=== PATIENT | female | born 1950 | race Caucasian/White ===

== ENCOUNTER → 2018-02-19 09:56 | Outpatient (CLI) | payer MEDICARE, SELFPAY ==
[2018-02-19 10:38] LABS: Alanine Aminotransferase 29 IU/L (9-52); Albumin 4.1 g/dL (3.5-5.0); Albumin Globulin Ratio 1.3 (1.0-2.8); Alkaline Phosphatase 82 U/L (38-126); Aspartate Aminotransferase 44 IU/L (14-36); Bilirubin Total 0.5 mg/dL (0.2-1.3); Calcium 9.2 mg/dL (8.4-10.2); Cholesterol 126 mg/dL (140-199); Estimated Glomerular Filt Rate > 60.0 mL/min (>60); Globulin 3.1 g/dL (1.7-4.1); Glucose 89 mg/dL (80-110); HDL Cholesterol 56 mg/dL (40-60); HEMOLYSIS < 15 (0-50); LDL Cholesterol Calculated 56 mg/dL (<100); Potassium 4.7 mmol/L (3.4-5.1); Sodium 142 mmol/L (137-145); Total Protein 7.2 g/dL (6.3-8.2); Triglycerides 72 mg/dL (35-150)
== END ==
PROVIDERS: PCP Physician Assistant; Visit Provider Physician Assistant
DX: E78.5 Hyperlipidemia, unspecified (principal); R00.1 Bradycardia, unspecified
CPT/HCPCS: 36415; 80053; 80061

== ENCOUNTER → 2018-04-09 09:32 | Outpatient (CLI) | payer MEDICARE, SELFPAY ==
[2018-04-09 10:57] LABS: Cholesterol 174 mg/dL (140-199); HDL Cholesterol 63 mg/dL (40-60); LDL Cholesterol Calculated 92 mg/dL (<100); Triglycerides 97 mg/dL (35-150)
== END ==
PROVIDERS: PCP Physician Assistant; Visit Provider Physician Assistant
DX: E78.5 Hyperlipidemia, unspecified (principal)
CPT/HCPCS: 36415; 80061

== ENCOUNTER → 2018-08-19 11:24 | Outpatient (CLI) | payer MEDICARE, SELFPAY ==
--- NOTE | 2018-08-19 11:27 | DI.MG.S_ITS ---
BILATERAL DIGITAL SCREENING MAMMOGRAM 3D/2D WITH CAD: 08/19/2018 CLINICAL: Routine screening. Family history of breast cancer. Comparison is made to exams dated: 06/30/2017 mammogram, 04/16/2016 mammogram, and 02/20/2015 mammogram - [facility]. There are scattered fibroglandular elements in both breasts. Current study was also evaluated with a Computer Aided Detection (CAD) system. No significant masses, calcifications, or other findings are seen in either breast. There has been no significant interval change. IMPRESSION: NEGATIVE There is no mammographic evidence of malignancy. A 1 year screening mammogram is recommended. NOTE: For mammograms, a report in lay terms will be sent to the patient. Approximately 15% of breast malignancies will not be visualized mammographically. In the management of a palpable breast mass, a negative mammogram must not discourage biopsy of a clinically suspicious lesion. Electronically Signed By: Princess [email or web address]:08/19/2018 16:03:59 letter sent: Normal Exam ACR BI-RADS Category 1: Negative [id number]
[2018-08-19 13:45] LABS: Vitamin D 25 Hydroxy (D3) 52.2 ng/mL (30.0-100.0)
[2018-08-19 16:31] LABS: Alanine Aminotransferase 32 IU/L (9-52); Albumin 3.9 g/dL (3.5-5.0); Albumin Globulin Ratio 1.6 (1.0-2.8); Alkaline Phosphatase 73 U/L (38-126); Aspartate Aminotransferase 42 IU/L (14-36); BUN Creatinine Ratio 17.1 (6-22); Bilirubin Total 0.3 mg/dL (0.2-1.3); Blood Urea Nitrogen 12 mg/dL (7-17); Carbon Dioxide 27 mmol/L (22-32); Chloride 105 mmol/L (98-107); Cholesterol 203 mg/dL (140-199); Estimated Glomerular Filt Rate > 60.0 mL/min (>60); Globulin 2.5 g/dL (1.7-4.1); Glucose 94 mg/dL (80-110); HDL Cholesterol 69 mg/dL (40-60); HEMOLYSIS < 15 (0-50); LDL Cholesterol Calculated 114 mg/dL (<100); Potassium 4.1 mmol/L (3.4-5.1); Sodium 142 mmol/L (137-145); Total Protein 6.4 g/dL (6.3-8.2); Triglycerides 102 mg/dL (35-150)
== END ==
PROVIDERS: PCP Physician Assistant; Visit Provider Physician Assistant
DX: Z12.31 Encounter for screening mammogram for malignant neoplasm of breast (principal); Z80.3 Family history of malignant neoplasm of breast; E78.5 Hyperlipidemia, unspecified; M81.0 Age-related osteoporosis without current pathological fracture; R00.1 Bradycardia, unspecified; Z98.84 Bariatric surgery status
CPT/HCPCS: 36415; 77063; 77067; 80053; 80061; 82306

== ENCOUNTER → 2018-09-16 13:37 | Outpatient (CLI) | payer MEDICARE, SELFPAY ==
--- NOTE | 2018-09-16 13:39 | DI.RAD.S_ITS ---
PROCEDURE: FL BARIUM SWALLOW INDICATIONS: Persistant GERD COMPARISON: None. FINDINGS: Function: Patient is status post prior gastric bypass surgery. There is normal esophageal peristalsis. Mild to moderate elicited gastroesophageal reflux is seen with contrast reflux to mid esophageal lumen. There is normal transit of a calibrated barium tablet through the esophagus into the gastric remnant and into the maximal small bowel loops. Morphology: Air-contrast images demonstrate normal mucosal morphology. Single contrast views show no esophageal strictures, extrinsic mass effects, or diverticula. Limited images of the stomach demonstrate normal appearance. IMPRESSION: Prior gastric bypass surgery. Mild to moderate gastroesophageal reflux with contrast reflux to mid esophageal lumen. No gross ulceration or intraluminal filling defect. No contrast extravasation. No obstruction. Dictated by: Dudley Rojas M.D. on 09/16/2018 at 15:05 Approved by: Dudley Rojas M.D. on 09/16/2018 at 15:06
== END ==
PROVIDERS: PCP Physician Assistant; Visit Provider Physician Assistant
DX: K21.9 Gastro-esophageal reflux disease without esophagitis (principal); Z98.84 Bariatric surgery status
CPT/HCPCS: 74220

== ENCOUNTER → 2019-03-17 11:37 | Outpatient (CLI) | payer MEDICARE, SELFPAY ==
--- NOTE | 2019-03-17 11:39 | DI.RAD.S_ITS ---
PROCEDURE: XR HAND RT MIN 3V INDICATIONS: Bilateral hand and thumb pain Left greater than right TECHNIQUE: 3 views of the hand(s) acquired. COMPARISON: None. FINDINGS: Bones: No fractures or dislocations. Carpal bones are normally aligned. No suspicious bony lesions. There is moderate degenerative joint disease at the first carpometacarpal joint, and mild degenerative joint disease at the triscaphe joint, first metacarpal phalangeal joint and multiple interphalangeal joints. No bony erosions or harriet-articular osteopenia. Soft tissues: No suspicious soft tissue calcifications. IMPRESSION: Mild to moderate degenerative joint disease. Dictated by: Juan Jose Basurto M.D. on 03/17/2019 at 12:04 Approved by: Juan Jose Basurto M.D. on 03/17/2019 at 12:05
--- NOTE | 2019-03-17 11:39 | DI.RAD.S_ITS ---
PROCEDURE: XR HAND LT MIN 3V INDICATIONS: Bilateral hand and thumb pain Left greater than right TECHNIQUE: 3 views of the hand(s) acquired. COMPARISON: None. FINDINGS: Bones: No fractures or dislocations. Carpal bones are normally aligned. No suspicious bony lesions. There are osteoarthritic changes at the first carpometacarpal joint and multiple interphalangeal joints. Osteopenia. Soft tissues: No suspicious soft tissue calcifications. IMPRESSION: 1. Osteoarthritis. 2. Osteopenia. Dictated by: Juan Jose Basurto M.D. on 03/17/2019 at 14:43 Approved by: Juan Jose Basurto M.D. on 03/17/2019 at 14:45
== END ==
PROVIDERS: PCP Physician Assistant; Visit Provider Physician Assistant
DX: M79.641 Pain in right hand (principal); M79.642 Pain in left hand; M79.644 Pain in right finger(s); M79.645 Pain in left finger(s); M18.0 Bilateral primary osteoarthritis of first carpometacarpal joints; M19.042 Primary osteoarthritis, left hand; M19.041 Primary osteoarthritis, right hand
CPT/HCPCS: 73130

== ENCOUNTER → 2019-05-10 08:51 | Outpatient (CLI) | payer MEDICARE, SELFPAY ==
[2019-05-10 09:18] LABS: Add Manual Diff / Slide Review NO; Basophils Absolute Auto 0 /uL (0-100); Basophils Percent Auto 0.5 % (0-2); Eosinophils Absolute Auto 200 /uL (0-450); Eosinophils Percent Auto 4.6 % (2-4); Hematocrit 41.1 % (36-46); Hemoglobin 13.7 g/dL (12.0-16.0); Lymphocytes Absolute Auto 1600 /uL (1100-4500); Lymphocytes Percent Auto 35.7 % (25-40); Mean Corpuscular HGB Conc 33.3 % (30-36); Mean Corpuscular Hemoglobin 29.6 PG (26-34); Mean Corpuscular Volume 88.7 fL (80-100); Monocytes Absolute Auto 400 /uL (0-900); Monocytes Percent Auto 8.4 % (3-14); Neutrophils Absolute Auto 2300 /uL (1500-7000); Neutrophils Percent Auto 50.8 % (50-75); Platelet Count 286 X10^3/uL (150-400); Red Blood Cell Count 4.64 X10^6/uL (4.0-5.2); Red Cell Distribution Width 13.4 % (11.6-14.8); White Blood Cell Count 4.6 X10^3/uL (4.5-11.0)
[2019-05-10 09:34] LABS: HEMOLYSIS < 15 (0-50)
[2019-05-10 09:41] LABS: Alanine Aminotransferase 24 IU/L (9-52); Albumin Globulin Ratio 1.3 (1.0-2.8); Alkaline Phosphatase 77 U/L (38-126); Aspartate Aminotransferase 43 IU/L (14-36); Bilirubin Total 0.3 mg/dL (0.2-1.3); Bilirubin Unconjugated 0.3 mg/dL (0.0-1.1); Cholesterol 218 mg/dL (140-199); Globulin 3.2 g/dL (1.7-4.1); HDL Cholesterol 59 mg/dL (40-60); HEMOLYSIS < 15 (0-50); LDL Cholesterol Calculated 130 mg/dL (<100); Total Protein 7.2 g/dL (6.3-8.2); Triglycerides 145 mg/dL (35-150)
[2019-05-13 17:21] LABS: Percent Iron Saturation 31 % (15-50)
[2019-05-13 17:22] LABS: Total Iron Binding Capacity 344 ug/dL (265-497)
[2019-05-13 17:36] LABS: Iron 108 ug/dL (37-170)
[2019-05-13 17:37] LABS: Transferrin 292 mg/dL (206-381)
== END ==
PROVIDERS: PCP Physician Assistant; Visit Provider Physician Assistant
DX: E78.5 Hyperlipidemia, unspecified (principal); R74.8 Abnormal levels of other serum enzymes; R74.0 Nonspecific elevation of levels of transaminase and lactic acid dehydrogenase [LDH]; Z86.2 Personal history of diseases of the blood and blood-forming organs and certain disorders involving the immune mechanism
CPT/HCPCS: 36415; 80061; 80076; 83540; 83550; 85025

== ENCOUNTER → 2019-07-08 17:43 | Outpatient (CLI) | payer MEDICARE, SELFPAY ==
[2019-07-08 18:30] LABS: Influenza A and B by PCR Rapid Negative (Negative)
== END ==
PROVIDERS: PCP Physician Assistant; Visit Provider Physician Assistant
DX: R68.89 Other general symptoms and signs (principal)
CPT/HCPCS: 87400; 87502

== ENCOUNTER 2019-07-12 12:22 | Emergency (ER) | payer MEDICARE, SELFPAY ==
[2019-07-12] VITALS (8 sets, daily range): BP systolic 99–135; BP diastolic 55–93; PULSE 64–85; RESP 18–22; TEMP 37.5–37.9; O2SAT 94–100
--- NOTE | 2019-07-12 13:23 | DI.RAD.S_ITS ---
PROCEDURE: XR CHEST 2V INDICATIONS: fever/fatigue TECHNIQUE: 2 views of the chest were acquired. COMPARISON: [facility], RG, XR CXR 1 VIEW, 07/20/2005, 9:43. [facility], RG, XR CXR 1 VIEW, 07/19/2005, 9:44. FINDINGS: Surgical changes and devices: None. 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 Lungs are clear. No pleural effusions or pneumothorax. Mediastinum: Mediastinal contours are normal. Heart size is normal. Bones and chest wall: No suspicious bony abnormalities. Soft tissues appear unremarkable. IMPRESSION: No acute cardiopulmonary disease. Dictated by: Juan Jose Basurto M.D. on 07/12/2019 at 14:21 Approved by: Juan Jose Basurto M.D. on 07/12/2019 at 14:22
[2019-07-12 13:54] LABS: Influenza A and B by PCR Rapid Negative (Negative)
[2019-07-12 15:05] LABS: Amorphous Sediment Urine 1+; Bacteria Urine Many (>30); Culture Indicated Urine Specimen Cultured; Mucus Urine 1+ (Negative); RBC Urine 1-5/HPF (0-5/HPF); Squamous Epithelial Cell Urine 0-1 /HPF (0-5/HPF); WBC Urine 30-100/HPF (0-5/HPF)
[2019-07-12] MEDS: ACETAMINOPHEN 325 MG TABLET 975 MG PO (15:33)
[2019-07-12 15:57] LABS: Add Manual Diff / Slide Review NO; Basophils Absolute Auto 0 /uL (0-100); Basophils Percent Auto 0.2 % (0-2); Eosinophils Absolute Auto 0 /uL (0-450); Eosinophils Percent Auto 0.4 % (2-4); Hemoglobin 11.9 g/dL (12.0-16.0); Lymphocytes Absolute Auto 1000 /uL (1100-4500); Lymphocytes Percent Auto 8.1 % (25-40); Mean Corpuscular HGB Conc 33.9 % (30-36); Mean Corpuscular Hemoglobin 30.2 PG (26-34); Mean Corpuscular Volume 89.1 fL (80-100); Monocytes Absolute Auto 1900 /uL (0-900); Monocytes Percent Auto 15.3 % (3-14); Neutrophils Absolute Auto 9400 /uL (1500-7000); Platelet Count 316 X10^3/uL (150-400); Red Blood Cell Count 3.93 X10^6/uL (4.0-5.2); Red Cell Distribution Width 14.8 % (11.6-14.8); White Blood Cell Count 12.4 X10^3/uL (4.5-11.0)
[2019-07-12 16:23] LABS: Alanine Aminotransferase 68 IU/L (9-52); Albumin 3.5 g/dL (3.5-5.0); Albumin Globulin Ratio 0.9 (1.0-2.8); Alkaline Phosphatase 179 U/L (38-126); Aspartate Aminotransferase 87 IU/L (14-36); BUN Creatinine Ratio 28.6 (6-22); Bilirubin Total 0.8 mg/dL (0.2-1.3); Blood Urea Nitrogen 20 mg/dL (7-17); Calcium 8.2 mg/dL (8.4-10.2); Carbon Dioxide 23 mmol/L (22-32); Chloride 99 mmol/L (98-107); Estimated Glomerular Filt Rate > 60.0 mL/min (>60); Globulin 3.7 g/dL (1.7-4.1); Glucose 111 mg/dL (80-110); Sodium 133 mmol/L (137-145); Total Protein 7.2 g/dL (6.3-8.2)
[2019-07-12 16:24] LABS: HEMOLYSIS 110 (0-50); Lactate (Lactic Acid) 0.9 mmol/L (0.7-2.1)
[2019-07-12 16:25] LABS: Potassium 4.5 mmol/L (3.4-5.1)
[2019-07-12] MEDS: SODIUM CHLORIDE 0.9% 1,000 ML 1000 ML IV (16:30)
[2019-07-12 16:41] LABS: Procalcitonin 1.34 ng/mL (<0.5)
[2019-07-12] MEDS: CIPROFLOXACIN 500 MG TABLET PO (17:54)
--- NOTE | 2019-07-12 20:08 | ED_ITS ---
HPI - Fever <Mirian Garcia, CREDIT HISTORIAN-BC - Last Filed: 07/12/19 20:19> General Chief Complaint: Fever Stated Complaint: Fever,chills,body aches Time Seen by Provider: 07/12/19 15:24 Source: patient and family Mode of arrival: Ambulatory Limitations: no limitations History of Present Illness HPI Narrative: The patient is a delightful 68 year year old female former smoker with a history of acid reflux who presents with her for a chief complaint of fever muscle aches and chills. She states this has been going on for 5 days. She also endorses a headache and cough. She denies any nausea vomiting or diarrhea. She denies any ear pain. She denies any chest pain or shortness of breath. She does admit to urinary urgency, which is recently developed and states sometimes she cannot make it to the bathroom in time. She denies any dysuria. She also complains of urinary frequency. She has not taken anything to feel better. She states that she was recently evaluated at the walk-in clinic Related Data Home Medications Medication Instructions Recorded Confirmed Vitamin B-12 1 tab PO DAILY #0 07/15/17 07/13/19 multivitamin 1 tab PO DAILY #0 07/15/17 07/13/19 vit C,A-Xi-ajmfx-lutein-zeaxan 1 cap PO BID #0 07/15/17 07/13/19 [PreserVision AREDS-2] Respironics RemStar Auto CPAP #1 ea 11/06/18 07/13/19 calcium-vitamin D3-vitamin K 500 2 tab PO DAILY 03/17/19 07/13/19 mg-100 unit-40 mcg chewable tablet diphenhydramine 25 2 tab PO BEDTIME PRN tab 03/17/19 07/13/19 mg-acetaminophen 500 mg tablet escitalopram oxalate 20 mg tablet 40 mg PO DAILY tab 03/17/19 07/13/19 ferrous sulfate 325 mg (65 mg 650 mg PO DAILY tab 03/17/19 07/13/19 iron) tablet Vitamin D3 1 cap PO DAILY 07/12/19 07/13/19 ascorbic acid (vitamin C) 1,000 mg PO DAILY 07/12/19 07/13/19 Previous Rx's Medication Instructions Recorded pantoprazole 20 mg tablet,delayed 20 mg PO BID #180 tab 03/17/19 release ciprofloxacin HCl 500 mg PO BID #20 tab 07/12/19 ondansetron 4 mg PO Q6H PRN #20 tab 07/12/19 Allergies Allergy/AdvReac Type Severity Reaction Status Date / Time adhesive tape [ADHESIVE TAPE] AdvReac Intermediate BLISTER Verified 07/13/19 12:00 FROM SURGICAL TAPE Review of Systems <VIVIAN Shaw - Last Filed: 07/12/19 20:19> Review of Systems Narrative: GENERAL: See HPI HEENT: Denies sinus pain, ear pain, sore throat, difficulty swallowing, dizziness. RESPIRATORY: Denies dyspnea, cough, wheezing, hemoptysis, sputum. CARDIOVASCULAR: Denies chest pain, palpitations, orthopnea, edema, GASTROINTESTINAL: Denies nausea, vomiting, abdominal pain, diarrhea, constipation, melena. : See HPI MUSCULOSKELETAL: denies weakness, joint pain, or bony pain SKIN: Denies rash, skin lesions, or other NEUROLOGIC: Denies weakness, headache, numbness, change in speech, confusion, seizures, incoordination. PSYCHIATRIC: No concerning psychosocial issues. 12 point review of systems is negative except for those stated above PFSH <VIVIAN Shaw - Last Filed: 07/12/19 20:19> Medical History Actinic keratosis (Resolved 1989) Anxiety (Chronic 1999) Cataracts, bilateral (Resolved 2013) Depression (Chronic 1989) Fractures (Resolved 1959) GERD (gastroesophageal reflux disease) (Chronic Unknown) Hearing loss (Chronic 1989) History of gambling (Resolved 1999) History of melanoma excision (Resolved 08/2014) Hyperlipidemia (Resolved) Obstructive sleep apnea treated with continuous positive airway pressure (CPAP) (Chronic 1989) Osteoarthritis (Chronic 1999) Osteoporosis (Chronic 08/21/17) Skin cancer (Resolved 1994) Status post gastric bypass for obesity (Resolved) Tubular adenoma of colon (Resolved 09/10/17) Surgical History History of carpal tunnel repair (Resolved 1994) History of gastric bypass (Resolved) History of knee replacement (Resolved) History of skin surgery (Resolved 2009) Hx of basal cell carcinoma excision (Resolved 2010) Hx of blepharoplasty (Resolved ~1989) Hx of cataract surgery (Resolved Unknown) Status post cholecystectomy (Resolved) Status post hysterectomy (Resolved) Family History Family/Other Adopted Social History Smoking Status: Former smoker Tobacco: How many years used: 20 second hand exposure: No alcohol intake: current substance use type: does not use Family History Family/Other Adopted Social History Smoking Status: Former smoker Tobacco: How many years used: 20 second hand exposure: No alcohol intake: current substance use type: does not use Exam <VIVIAN Shaw - Last Filed: 07/12/19 20:19> Narrative Exam Narrative: GENERAL: Delightful elderly female in no acute distress HEAD: Atraumatic. Normocephalic. No temporal or scalp tenderness. EYES: Pupils equal round and reactive. Extraocular motions intact. No scleral icterus. No injection or drainage. ENT: Nose without bleeding, purulent drainage or septal hematoma. Throat without erythema, tonsillar hypertrophy or exudate. Uvula midline. Airway patent. NECK: Trachea midline. No JVD or lymphadenopathy. Supple, nontender, no me ningeal signs. CARDIOVASCULAR: Regular rate and rhythm without murmurs, gallops, or rubs. RESPIRATORY: Clear to auscultation. Breath sounds equal bilaterally. No wheezes, rales, or rhonchi. No cough. No increased respiratory effort. No accessory muscle use. GASTROINTESTINAL: Abdomen soft, non-tender, nondistended. No hepato- splenomegaly, or palpable masses. No guarding. Active bowel sounds all 4 quadrants. EXTREMITIES: No clubbing, cyanosis, or edema. No joint tenderness, effusion, or edema noted. BACK: Nontender without deformity or crepitance. No flank tenderness. NEURO: AOx3. SKIN: No rash or erythema. Initial Vital Signs Initial Vital Signs: Vital Signs Temperature 99.7 F H 07/12/19 13:18 Pulse Rate 82 07/12/19 13:18 Respiratory Rate 18 07/12/19 13:18 Blood Pressure 122/78 07/12/19 13:18 Pulse Oximetry 94 07/12/19 13:18 <Mirian Araiza DO - Last Filed: 07/14/19 18:06> Initial Vital Signs Initial Vital Signs: Vital Signs Temperature 99.7 F H 07/12/19 13:18 Pulse Rate 82 07/12/19 13:18 Respiratory Rate 18 07/12/19 13:18 Blood Pressure 122/78 07/12/19 13:18 Pulse Oximetry 94 07/12/19 13:18 Course <JORI Shaw-BC - Last Filed: 07/12/19 20:19> Orders Ordered: Discontinued Medications Acetaminophen (Tylenol) 975 mg PO NOW ONE Stop: 07/12/19 13:24 Last Admin: 07/12/19 15:33 Dose: 975 mg Documented by: MIQUEL Ciprofloxacin (Cipro) 500 mg PO NOW ONE Stop: 07/12/19 17:32 Last Admin: 07/12/19 17:54 Dose: 500 mg Documented by: MIQUEL Sodium Chloride (Normal Saline 0.9%) 1,000 mls @ 1,000 mls/hr IV BOLUS ONE Stop: 07/12/19 17:08 Last Infusion: 07/12/19 17:30 Dose: 0 mls/hr Documented by: Admin: 07/12/19 16:30 Dose: 1,000 mls/hr Documented by: MIQUEL Vital Signs Vital signs: Vital Signs - 8 hr 07/12/19 13:18 07/12/19 15:33 07/12/19 16:30 Temperature 99.7 F H 100.2 F H 99.5 F Pulse Rate 82 70 Pulse Rate [Orthostatic Lying] Pulse Rate [Orthostatic Sitting] Pulse Rate [Orthostatic Standing] Respiratory Rate 18 22 Blood Pressure 122/78 Blood Pressure [Orthostatic Lying] Blood Pressure [Orthostatic Sitting] Blood Pressure [Orthostatic Standing] Blood Pressure [Right Arm] 99/62 Pulse Oximetry 94 100 07/12/19 16:45 07/12/19 17:30 07/12/19 18:00 Temperature Pulse Rate 68 66 Pulse Rate [Orthostatic Lying] 68 Pulse Rate [Orthostatic Sitting] 64 Pulse Rate [Orthostatic Standing] 69 Respiratory Rate 20 18 Blood Pressure Blood Pressure [Orthostatic Lying] 99/65 Blood Pressure [Orthostatic Sitting] 110/66 Blood Pressure [Orthostatic Standing] 104/68 Blood Pressure [Right Arm] 135/93 H 102/55 L Pulse Oximetry 94 94 07/12/19 18:15 07/12/19 19:00 Temperature Pulse Rate 69 85 Pulse Rate [Orthostatic Lying] Pulse Rate [Orthostatic Sitting] Pulse Rate [Orthostatic Standing] Respiratory Rate 18 20 Blood Pressure Blood Pressure [Orthostatic Lying] Blood Pressure [Orthostatic Sitting] Blood Pressure [Orthostatic Standing] Blood Pressure [Right Arm] 104/68 110/77 Pulse Oximetry 96 95 <Mirian Araiza, - Last Filed: 07/14/19 18:06> Orders Ordered: Discontinued Medications Acetaminophen (Tylenol) 975 mg PO NOW ONE Stop: 07/12/19 13:24 Last Admin: 07/12/19 15:33 Dose: 975 mg Documented by: MIQUEL Ciprofloxacin (Cipro) 500 mg PO NOW ONE Stop: 07/12/19 17:32 Last Admin: 07/12/19 17:54 Dose: 500 mg Documented by: MIQUEL Sodium Chloride (Normal Saline 0.9%) 1,000 mls @ 1,000 mls/hr IV BOLUS ONE Stop: 07/12/19 17:08 Last Infusion: 07/12/19 17:30 Dose: 0 mls/hr Documented by: Admin: 07/12/19 16:30 Dose: 1,000 mls/hr Documented by: MIQUEL Vital Signs Vital signs: Vital Signs - 8 hr 07/12/19 13:18 07/12/19 15:33 07/12/19 16:30 Temperature 99.7 F H 100.2 F H 99.5 F Pulse Rate 82 70 Pulse Rate [Orthostatic Lying] Pulse Rate [Orthostatic Sitting] Pulse Rate [Orthostatic Standing] Respiratory Rate 18 22 Blood Pressure 122/78 Blood Pressure [Orthostatic Lying] Blood Pressure [Orthostatic Sitting] Blood Pressure [Orthostatic Standing] Blood Pressure [Right Arm] 99/62 Pulse Oximetry 94 100 07/12/19 16:45 07/12/19 17:30 07/12/19 18:00 Temperature Pulse Rate 68 66 Pulse Rate [Orthostatic Lying] 68 Pulse Rate [Orthostatic Sitting] 64 Pulse Rate [Orthostatic Standing] 69 Respiratory Rate 20 18 Blood Pressure Blood Pressure [Orthostatic Lying] 99/65 Blood Pressure [Orthostatic Sitting] 110/66 Blood Pressure [Orthostatic Standing] 104/68 Blood Pressure [Right Arm] 135/93 H 102/55 L Pulse Oximetry 94 94 07/12/19 18:15 07/12/19 19:00 Temperature Pulse Rate 69 85 Pulse Rate [Orthostatic Lying] Pulse Rate [Orthostatic Sitting] Pulse Rate [Orthostatic Standing] Respiratory Rate 18 20 Blood Pressure Blood Pressure [Orthostatic Lying] Blood Pressure [Orthostatic Sitting] Blood Pressure [Orthostatic Standing] Blood Pressure [Right Arm] 104/68 110/77 Pulse Oximetry 96 95 MDM - Fever <Mirian Garcia, CREDIT HISTORIAN-BC - Last Filed: 07/12/19 20:19> Lab Data Result diagrams: 07/12/19 15:45 07/12/19 15:45 Labs: Lab Results 07/12/19 07/12/19 07/12/19 Range/Units 13:22 14:35 15:45 WBC 12.4 H (4.5-11.0) X10^3/uL RBC 3.93 L (4.0-5.2) X10^6/uL Hgb 11.9 L (12.0-16.0) g/dL Hct 35.0 L (36-46) % MCV 89.1 (80-100) fL MCH 30.2 (26-34) PG MCHC 33.9 (30-36) % RDW 14.8 (11.6-14.8) % Plt Count 316 (150-400) X10^3/uL Neut % (Auto) 76.0 H (50-75) % Lymph % (Auto) 8.1 L (25-40) % [place] % (Auto) 15.3 H (3-14) % Eos % (Auto) 0.4 L (2-4) % Baso % (Auto) 0.2 (0-2) % Neut # (Auto) 9400 H (9050-9434) /uL Lymph # (Auto) 1000 L (8241-4222) /uL [place] # (Auto) 1900 H (0-900) /uL Eos # (Auto) 0 (0-450) /uL Baso # (Auto) 0 (0-100) /uL Sodium (137-145) mmol/L Potassium (3.4-5.1) mmol/L Chloride (98-107) mmol/L Carbon Dioxide (22-32) mmol/L BUN (7-17) mg/dL Creatinine (0.52-1.04) mg/dL Estimated GFR (>60) mL/min BUN/Creatinine Ratio (6-22) Glucose (80-110) mg/dL Lactate (0.7-2.1) mmol/L Calcium (8.4-10.2) mg/dL Total Bilirubin (0.2-1.3) mg/dL AST (14-36) IU/L ALT (9-52) IU/L Alkaline Phosphatase (38-126) U/L Total Protein (6.3-8.2) g/dL Albumin (3.5-5.0) g/dL Globulin (1.7-4.1) g/dL Albumin/Globulin Ratio (1.0-2.8) Procalcitonin (<0.5) ng/mL Urine RBC 1-5/hpf (0-5/HPF) Urine WBC 30-100/hpf H (0-5/HPF) Ur Squamous Epith Cells 0-1 /hpf (0-5/HPF) Amorphous Sediment 1+ Urine Bacteria Many (>30) H (None) Urine Mucus 1+ H (Negative) Ur Culture Indicated? Specimen cultured Influenza A & B (PCR) Negative (Negative) 07/12/19 07/12/19 07/12/19 Range/Units 15:45 15:45 15:45 WBC (4.5-11.0) X10^3/uL RBC (4.0-5.2) X10^6/uL Hgb (12.0-16.0) g/dL Hct (36-46) % MCV (80-100) fL MCH (26-34) PG MCHC (30-36) % RDW (11.6-14.8) % Plt Count (150-400) X10^3/uL Neut % (Auto) (50-75) % Lymph % (Auto) (25-40) % [place] % (Auto) (3-14) % Eos % (Auto) (2-4) % Baso % (Auto) (0-2) % Neut # (Auto) (7558-5079) /uL Lymph # (Auto) (7067-6773) /uL [place] # (Auto) (0-900) /uL Eos # (Auto) (0-450) /uL Baso # (Auto) (0-100) /uL Sodium 133 L (137-145) mmol/L Potassium 4.5 (3.4-5.1) mmol/L Chloride 99 (98-107) mmol/L Carbon Dioxide 23 (22-32) mmol/L BUN 20 H (7-17) mg/dL Creatinine 0.70 (0.52-1.04) mg/dL Estimated GFR > 60.0 (>60) mL/min BUN/Creatinine Ratio 28.6 H (6-22) Glucose 111 H (80-110) mg/dL Lactate 0.9 (0.7-2.1) mmol/L Calcium 8.2 L (8.4-10.2) mg/dL Total Bilirubin 0.8 (0.2-1.3) mg/dL AST 87 H (14-36) IU/L ALT 68 H (9-52) IU/L Alkaline Phosphatase 179 H (38-126) U/L Total Protein 7.2 (6.3-8.2) g/dL Albumin 3.5 (3.5-5.0) g/dL Globulin 3.7 (1.7-4.1) g/dL Albumin/Globulin Ratio 0.9 L (1.0-2.8) Procalcitonin 1.34 H (<0.5) ng/mL Urine RBC (0-5/HPF) Urine WBC (0-5/HPF) Ur Squamous Epith Cells (0-5/HPF) Amorphous Sediment Urine Bacteria (None) Urine Mucus (Negative) Ur Culture Indicated? Influenza A & B (PCR) (Negative) Imaging Data Chest x-ray: Radiologist's impression: [address] [address] XRay Report Signed Patient: Agustina Anthony LMR#: [id number] : 1950Acct:[id number] Age/Sex: 68 / FDate of Service: 07/12/19 Loc: ED Accession Number: [id number] Procedure: XR chest 2V Ordering Provider: Mirian Araiza D.O. PROCEDURE: XR CHEST 2V INDICATIONS: fever/fatigue TECHNIQUE: 2 views of the chest were acquired. COMPARISON: [facility], RG, XR CXR 1 VIEW, 07/20/2005, 9:43. [facility], RG, XR CXR 1 VIEW, 07/19/2005, 9:44. FINDINGS: Surgical changes and devices: None. 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 Lungs are clear. No pleural effusions or pneumothorax. Mediastinum: Mediastinal contours are normal. Heart size is normal. Bones and chest wall: No suspicious bony abnormalities. Soft tissues appear unremarkable. IMPRESSION: No acute cardiopulmonary disease. Dictated by: Juan Jose Basurto M.D. on 07/12/2019 at 14:21 Approved by: Juan Jose Basurto M.D. on 07/12/2019 at 14:22 MDM Narrative Medical decision making narrative: The patient is a 68-year-old female who presents with a chief complaint of fever muscle aches and chills. She was concerned she had the flu. She tested negative for the flu. Chest x-ray shows no pneumonia. However her urine is concerning for infection, with many bacteria, mucus and white blood cells. This correlates with her history of urinary urgency and frequency. I believe she has had a UTI for a few days, likely developing into a pyelonephritis at this point time. She does have low- grade fevers, but otherwise feels well without any nausea or vomiting. She kristi es any CVA tenderness on exam. However she does have a slight leukocytosis, and elevated procalcitonin at 1.34 but has a lactate of 0.9. Given her elevated temperatures with her slightly elevated procalcitonin, I did speak at length with the patient about the possibility of admission for treatment of her infection. The patient stated she strongly wanted to go home. We did at length discussed return precautions, strict follow-up, coming back to the emergency department feeling worse, inability keep down fluids etc. She was able to pass a p.o. trial in the emergency department we initiated treatment with Cipro. She felt much improved and had normal orthostatics. I reiterated several times strict return precautions as well as strict follow-up care. Patient has been state understanding of return precautions and follow-up recommendations and have no questions or concerns upon discharge. <Mirian Araiza, - Last Filed: 10/09/19 18:06> Lab Data Labs: Lab Results 07/12/19 07/12/19 07/12/19 Range/Units 13:22 14:35 15:45 WBC 12.4 H (4.5-11.0) X10^3/uL RBC 3.93 L (4.0-5.2) X10^6/uL Hgb 11.9 L (12.0-16.0) g/dL Hct 35.0 L (36-46) % MCV 89.1 (80-100) fL MCH 30.2 (26-34) PG MCHC 33.9 (30-36) % RDW 14.8 (11.6-14.8) % Plt Count 316 (150-400) X10^3/uL Neut % (Auto) 76.0 H (50-75) % Lymph % (Auto) 8.1 L (25-40) % [place] % (Auto) 15.3 H (3-14) % Eos % (Auto) 0.4 L (2-4) % Baso % (Auto) 0.2 (0-2) % Neut # (Auto) 9400 H (3401-1143) /uL Lymph # (Auto) 1000 L (6727-7834) /uL [place] # (Auto) 1900 H (0-900) /uL Eos # (Auto) 0 (0-450) /uL Baso # (Auto) 0 (0-100) /uL Sodium (137-145) mmol/L Potassium (3.4-5.1) mmol/L Chloride (98-107) mmol/L Carbon Dioxide (22-32) mmol/L BUN (7-17) mg/dL Creatinine (0.52-1.04) mg/dL Estimated GFR (>60) mL/min BUN/Creatinine Ratio (6-22) Glucose (80-110) mg/dL Lactate (0.7-2.1) mmol/L Calcium (8.4-10.2) mg/dL Total Bilirubin (0.2-1.3) mg/dL AST (14-36) IU/L ALT (9-52) IU/L Alkaline Phosphatase (38-126) U/L Total Protein (6.3-8.2) g/dL Albumin (3.5-5.0) g/dL Globulin (1.7-4.1) g/dL Albumin/Globulin Ratio (1.0-2.8) Procalcitonin (<0.5) ng/mL Urine RBC 1-5/hpf (0-5/HPF) Urine WBC 30-100/hpf H (0-5/HPF) Ur Squamous Epith Cells 0-1 /hpf (0-5/HPF) Amorphous Sediment 1+ Urine Bacteria Many (>30) H (None) Urine Mucus 1+ H (Negative) Ur Culture Indicated? Specimen cultured Influenza A & B (PCR) Negative (Negative) 07/12/19 07/12/19 07/12/19 Range/Units 15:45 15:45 15:45 WBC (4.5-11.0) X10^3/uL RBC (4.0-5.2) X10^6/uL Hgb (12.0-16.0) g/dL Hct (36-46) % MCV (80-100) fL MCH (26-34) PG MCHC (30-36) % RDW (11.6-14.8) % Plt Count (150-400) X10^3/uL Neut % (Auto) (50-75) % Lymph % (Auto) (25-40) % [place] % (Auto) (3-14) % Eos % (Auto) (2-4) % Baso % (Auto) (0-2) % Neut # (Auto) (0369-5658) /uL Lymph # (Auto) (9120-8122) /uL [place] # (Auto) (0-900) /uL Eos # (Auto) (0-450) /uL Baso # (Auto) (0-100) /uL Sodium 133 L (137-145) mmol/L Potassium 4.5 (3.4-5.1) mmol/L Chloride 99 (98-107) mmol/L Carbon Dioxide 23 (22-32) mmol/L BUN 20 H (7-17) mg/dL Creatinine 0.70 (0.52-1.04) mg/dL Estimated GFR > 60.0 (>60) mL/min BUN/Creatinine Ratio 28.6 H (6-22) Glucose 111 H (80-110) mg/dL Lactate 0.9 (0.7-2.1) mmol/L Calcium 8.2 L (8.4-10.2) mg/dL Total Bilirubin 0.8 (0.2-1.3) mg/dL AST 87 H (14-36) IU/L ALT 68 H (9-52) IU/L Alkaline Phosphatase 179 H (38-126) U/L Total Protein 7.2 (6.3-8.2) g/dL Albumin 3.5 (3.5-5.0) g/dL Globulin 3.7 (1.7-4.1) g/dL Albumin/Globulin Ratio 0.9 L (1.0-2.8) Procalcitonin 1.34 H (<0.5) ng/mL Urine RBC (0-5/HPF) Urine WBC (0-5/HPF) Ur Squamous Epith Cells (0-5/HPF) Amorphous Sediment Urine Bacteria (None) Urine Mucus (Negative) Ur Culture Indicated? Influenza A & B (PCR) (Negative) Discharge Plan Departure Patient Disposition: Home Clinical Impression: Acute pyelonephritis Discharge Date/Time: 07/12/19 19:30 Instructions: DI for Kidney Infection, DI for Fever (Symptom) -- Adult Activity Restrictions/Additional Instructions: Thank you for trusting us with your care today. We have found a urinary tract infection that needs antibiotics. I have given you a prescription of antibiotics. Please take the full course. I suggest continue [id number] medications as needed for muscles and aches. As I discussed, you need very close follow-up with her primary care provider. Please call them tomorrow. Please do not hesitate to come back to the emergency department for any acute concerns including high fever, inability keep down fluids, feeling worse etc. Please come back if you are concerned. Please rest and push fluids. At this point we have blood and urine cultures pending. We will call you if we need to change your antibiotics. Prescriptions: New ondansetron 4 mg tablet,disintegrating 4 mg PO Q6H PRN (Reason: nausea and vomiting) Qty: 20 RF: 0 ciprofloxacin HCl 500 mg tablet 500 mg PO BID Qty: 20 RF: 0 No Action multivitamin Tablet 1 tab PO DAILY Qty: 0 RF: 0 Vitamin B-12 1 tab PO DAILY Qty: 0 RF: 0 PreserVision AREDS-2 [id number] tr-dkxz-sa-mg Capsule 1 cap PO BID Qty: 0 RF: 0 escitalopram oxalate 20 mg tablet 40 mg PO DAILY RF: 0 calcium-vitamin D3-vitamin K 500-100-40 mg-unit-mcg tablet,chewable 2 tab PO DAILY RF: 0 ferrous sulfate 325 mg (65 mg iron) tablet 650 mg PO DAILY RF: 0 diphenhydramine-acetaminophen [Acetaminophen PM] 25-500 mg tablet 2 tab PO BEDTIME PRN (Reason: Sleep) RF: 0 pantoprazole 20 mg tablet,delayed release (DR/EC) 20 mg PO BID Qty: 180 RF: 3 ascorbic acid (vitamin C) 500 mg Tablet,Chewable 1,000 mg PO DAILY RF: 0 Vitamin D3 1 cap PO DAILY RF: 0 (DME) Respironics RemStar Auto CPAP aerosol Qty: 1 RF: 0 Referrals: Gema Heredia PA-C [Primary Care Provider] -
== END 2019-07-12 19:30 | disposition home or self-care (01) ==
PROVIDERS: Emergency Medicine; Emergency Provider Nurse Practitioner Family; PCP Physician Assistant
DX: N10 Acute pyelonephritis (principal)
CPT/HCPCS: 36415; 71046; 80053; 81015; 83605; 84145; 85025; 87040; 87077; 87086; 87186; 87400; 87502; 96360; 99283; 99284

== ENCOUNTER → 2019-07-23 14:20 | Outpatient (CLI) | payer MEDICARE, SELFPAY ==
[2019-07-23 14:37] LABS: Appearance Urine UA CLEAR; Bilirubin Urine UA NEGATIVE (NEGATIVE); Color Urine UA YELLOW; Glucose Urine UA NEGATIVE (Negative); Ketones Urine UA NEGATIVE (NEGATIVE); Leukocyte Esterase Urine UA TRACE (NEGATIVE); Nitrite Urine UA NEGATIVE (Negative); Occult Blood Urine UA NEGATIVE (Negative); Protein Urine UA NEGATIVE (Negative); Urobilinogen Urine UA 0.2 E.U./dL (0.2)
[2019-07-23 14:40] LABS: Bacteria Urine None Seen; RBC Urine None Seen (0-5/HPF)
[2019-07-23 14:48] LABS: Amorphous Sediment Urine 3+; Culture Indicated Urine Specimen Cultured; Squamous Epithelial Cell Urine 1-5 /HPF (0-5/HPF); WBC Urine 1-5/HPF (0-5/HPF)
== END ==
PROVIDERS: PCP Physician Assistant; Visit Provider Nurse Practitioner
DX: N10 Acute pyelonephritis (principal)
CPT/HCPCS: 81003; 81015; 87086

== ENCOUNTER → 2019-08-20 11:48 | Outpatient (CLI) | payer MEDICARE, SELFPAY ==
--- NOTE | 2019-08-20 | DI.MG.S_ITS ---
BILATERAL DIGITAL SCREENING MAMMOGRAM 3D/2D WITH CAD: 08/20/2019 CLINICAL: Routine screening. Family history of breast cancer. Comparison is made to exams dated: 08/19/2018 mammogram - [facility], 06/30/2017 mammogram, and 04/16/2016 mammogram - [facility]. There are scattered fibroglandular elements in both breasts. Current study was also evaluated with a Computer Aided Detection (CAD) system. No significant masses, calcifications, or other findings are seen in either breast. There has been no significant interval change. IMPRESSION: NEGATIVE There is no mammographic evidence of malignancy. A 1 year screening mammogram is recommended. This exam was interpreted at Station ID: [id number]. NOTE: For mammograms, a report in lay terms will be sent to the patient. Approximately 15% of breast malignancies will not be visualized mammographically. In the management of a palpable breast mass, a negative mammogram must not discourage biopsy of a clinically suspicious lesion. Electronically Signed By: Gray beckman/leni:08/20/2019 13:28:51 letter sent: Normal Exam ACR BI-RADS Category 1: Negative [id number]
== END ==
PROVIDERS: PCP Physician Assistant; Visit Provider Physician Assistant
DX: Z12.31 Encounter for screening mammogram for malignant neoplasm of breast (principal); Z80.3 Family history of malignant neoplasm of breast
CPT/HCPCS: 77063; 77067

== ENCOUNTER 2019-08-30 10:30 | Outpatient (RCR) | payer MEDICARE, SELFPAY ==
--- NOTE | 2019-08-13 13:56 | PT.OIE ---
Current Diagnoses Mixed incontinence (08/13/19) Unspecified urinary incontinence (08/13/19) Past Medical History (Last Reviewed 07/12/19 @ 20:12 by JORI Shaw-) Actinic keratosis (Resolved 1989) Anxiety (Chronic 1999) Cataracts, bilateral (Resolved 2013) Depression (Chronic 1989) Fractures (Resolved 1959) GERD (gastroesophageal reflux disease) (Chronic Unknown) Hearing loss (Chronic 1989) History of gambling (Resolved 1999) History of melanoma excision (Resolved 08/2014) Hyperlipidemia (Resolved) Obstructive sleep apnea treated with continuous positive airway pressure (CPAP) (Chronic 1989) Osteoarthritis (Chronic 1999) Osteoporosis (Chronic 08/21/17) Skin cancer (Resolved 1994) Status post gastric bypass for obesity (Resolved) Tubular adenoma of colon (Resolved 09/10/17) Past Surgical History (Last Reviewed 07/12/19 @ 20:12 by JORI Shaw-) History of carpal tunnel repair (Resolved 1994) History of gastric bypass (Resolved) History of knee replacement (Resolved) History of skin surgery (Resolved 2009) Hx of basal cell carcinoma excision (Resolved 2010) Hx of blepharoplasty (Resolved ) Hx of cataract surgery (Resolved Unknown) Status post cholecystectomy (Resolved) Status post hysterectomy (Resolved) Visit Care Team Role Provider Type Gema Heredia PA-C Primary Care Provider Advanced Sustainability Communicator Specialty: Medical Address: [address] [place] [address], [address], [facility] Email: [email or web address] DENNY Riley Attending Provider Advanced Sustainability Communicator Specialty: Family Practice Address: [address] [place] [address], [facility] Email: [email or web address] Physical Therapy Initial Evaluation PT-OP-A Visit Information Start: 08/13/19 07:29 Freq: Status: Active Protocol: Document 08/13/19 09:00 AMB (Rec: 08/15/19 13:56 AMB [email or web address]) Out-Patient Physical Therapy Visit Information Visit Information Visit Type Initial Evaluation Visit Start Time 09:00 Visit Stop Time 09:45 Total Visit Minutes 45 Visit Number 1 PT-OP-B Current Condition Start: 08/13/19 07:29 Freq: Status: Active Protocol: Document 08/13/19 09:00 AMB (Rec: 08/15/19 13:56 AMB [email or web address]) Current Condition History of Current Condition Onset Date 5 years ago, worse in last month Current Complaints urinary incontinence urgency and stress History of Current Condition Agustina Fernández has noticed urinary leaking for the past few years. She was recently diagnosed with a kidney infection, and while that was going on her leaking was much worse. Now that the infection has resolved, her symptoms are still worse than they were before. She wears pads both at day and night, she leaks when she has an urge (like walking to the toilet) and with sneeze, cough, laugh. She does have a history of 2 vaginal deliveries with 2 episiotomies. She did have a gastric bypass in 2004 and hysterectomy in 1984 with hormone replacement, she does state that she retained one ovary. She does have a history of painful intercourse - pretty much her whole life although she is not sexually active currently. Treatment Goals Patient/Caregiver Goals Reduce leaking (both stress and urgency) Prior Functional Status Baseline Function- ADL's Independent Baseline Function- Mobility Independent Current Functional Impairments (Reported) Functional Limitations- ADL's urinary leaking Personal Factors Other Personal Factors That May Effect Recent kidney infection, hx Therapy/Recovery hysterectomy, hx painful intercourse PT-OP-C Subjective Start: 08/13/19 07:29 Freq: Status: Active Protocol: Document 08/13/19 09:00 AMB (Rec: 08/15/19 13:56 AMB [email or web address]) Patient Questionnaires Pelvic Pain and Urgency/Frequency Patient Symptom Scale Pelvic Pain Score 11 PT-OP-I Pelvic Floor Start: 08/13/19 07:29 Freq: Status: Active Protocol: Document 08/13/19 09:00 AMB (Rec: 08/15/19 13:56 AMB [email or web address]) Pelvic Floor Assessment Urine Pelvic Floor Surgery Yes: hysterectomy Leakage Size Medium Leakage Cause Cough,Exercise,Lifting,Sneeze, Urge Other Leakage Causes pt reports she does not drink much fluid and does not have much urine when she does void Leaks Per Day 3 Voiding Frequency every 2 hours Nocturia 0-1 Urine Pad Type Panty Liner Pelvic Clock Pelvic Clock 12-3 Atrophy Pelvic Clock 3-6 Atrophy Pelvic Clock 6-9 Atrophy Pelvic Clock 9-12 Atrophy Pelvic Clock Other despite painful intercourse hx pt did not have significant tightness or pain with internal assessment Prolapse Cystocele Grade 2 Perineal Descent Resting Present Bearing Present Contraction Ability Voluntary Contraction Weak Voluntary Relaxation Moderate Manual Muscle Testing Left 2 Manual Muscle Testing Right 2 Manual Muscle Testing Anterior 2 Manual Muscle Testing Posterior 2 Muscle Endurance (Seconds) 5 Number of Quick Contractions In 10 4 Seconds PT-OP-T Assessment and Plan Start: 08/13/19 07:29 Freq: Status: Active Protocol: Document 08/13/19 09:00 AMB (Rec: 08/15/19 13:56 AMB [email or web address]) Physical Therapy Assessment Rehab Potential Rehabilitation Potential Good Evaluation Complexity Number of Personal Factors/Comorbidities 3 or More Number of Body Systems Impaired 1-2 Clinical Presentation at Evaluation Stable Impairments Impairments Functional Activities,Strength Goals Two Impairment urge incontinence Short Term Goal (STG) Pradeep will use pelvic floor contractions and focused relaxation to calmly walk to the toilet to avoid leaking due to urgency. STG Duration 4 weeks One Impairment stress incontinence Short Term Goal (STG) Pradeep will be independent with a pelvic floor strengthening program. STG Duration 4 weeks Shelter Goal (LTG) Pradeep will be able to contract her pelvic floor when coughing to avoid leaking. LTG Duration 8 weeks Assessment Summary Assessment Pradeep attends PT with both urge and stress urinary incontinence, worsened by recent kidney infection. She did have signs of cystocele and weakness in her pelvic floor. So we will work to improve her strength, especially in functional positions. She will also benefit from behavioral training to reduce her triggers and urgency. Physical Therapy Plan Frequency and Duration Frequency of Treatment 1x/Week Duration of Treatment 8 weeks Plan of Care Start Date 08/13/19 Plan of Care End Date 10/08/19 Therapeutic Interventions Therapeutic Interventions Home Exercise Program,Manual Therapy,Neuromuscular Re- education,Self-Care/Home Management,Soft Tissue Mobilization,Therapeutic Activities,Therapeutic Exercises Modalities Biofeedback,Electric Stimulation Next Visit Focus/Plan Next Note Type Treatment Note Next Visit Plan being with sEMG if tolerates sensor, instruct in behavioral training to reduce urgency
--- NOTE | 2019-08-13 13:57 | PT.OPPOC ---
Current Diagnoses Mixed incontinence (08/13/19) Unspecified urinary incontinence (08/13/19) Visit Care Team Role Provider Type Gema Heredia PA-C Primary Care Provider Advanced Inspector Packager Specialty: Medical Address: [address] [place] [address], [address], [place], [address] Email: [email or web address] DENNY Riley Attending Provider Advanced Inspector Packager Specialty: Family Practice Address: [address] [place] [address], [id number] Email: [email or web address] Plan Of Care PT-OP-T Assessment and Plan Start: 08/13/19 07:29 Freq: Status: Active Protocol: Document 08/13/19 09:00 AMB (Rec: 08/15/19 13:56 AMB [email or web address]) Physical Therapy Assessment Rehab Potential Rehabilitation Potential Good Evaluation Complexity Number of Personal Factors/Comorbidities 3 or More Number of Body Systems Impaired 1-2 Clinical Presentation at Evaluation Stable Impairments Impairments Functional Activities,Strength Goals Two Impairment urge incontinence Short Term Goal (STG) Pradeep will use pelvic floor contractions and focused relaxation to calmly walk to the toilet to avoid leaking due to urgency. STG Duration 4 weeks One Impairment stress incontinence Short Term Goal (STG) Pradeep will be independent with a pelvic floor strengthening program. STG Duration 4 weeks Intermediate Goal (LTG) Pradeep will be able to contract her pelvic floor when coughing to avoid leaking. LTG Duration 8 weeks Assessment Summary Assessment Pradeep attends PT with both urge and stress urinary incontinence, worsened by recent kidney infection. She did have signs of cystocele and weakness in her pelvic floor. So we will work to improve her strength, especially in functional positions. She will also benefit from behavioral training to reduce her triggers and urgency. Physical Therapy Plan Frequency and Duration Frequency of Treatment 1x/Week Duration of Treatment 8 weeks Plan of Care Start Date 08/13/19 Plan of Care End Date 10/08/19 Therapeutic Interventions Therapeutic Interventions Home Exercise Program,Manual Therapy,Neuromuscular Re- education,Self-Care/Home Management,Soft Tissue Mobilization,Therapeutic Activities,Therapeutic Exercises Modalities Biofeedback,Electric Stimulation Next Visit Focus/Plan Next Note Type Treatment Note [facility], instruct in behavioral training to reduce urgency Plan of Care Dates Plan of Care Start Date 08/13/19 Plan of Care End Date 10/08/19
--- NOTE | 2019-08-20 09:47 | PT.OTN ---
Current Diagnoses Mixed incontinence (08/20/19) Unspecified urinary incontinence (08/20/19) Physical Therapy Treatment Note PT-OP-A Visit Information Start: 08/13/19 07:29 Freq: Status: Active Protocol: Document 08/20/19 09:00 AMB (Rec: 08/20/19 09:45 AMB [id number]) Out-Patient Physical Therapy Visit Information Visit Information Visit Type Treatment Note Visit Start Time 09:00 Visit Stop Time 09:45 Total Visit Minutes 45 Visit Number 2 PT-OP-B Current Condition Start: 08/13/19 07:29 Freq: Status: Active Protocol: Document 08/13/19 09:00 AMB (Rec: 08/15/19 13:56 AMB [email or web address]) Current Condition History of Current Condition Onset Date 5 years ago, worse in last month Current Complaints urinary incontinence urgency and stress History of Current Condition Agustina Fernández has noticed urinary leaking for the past few years. She was recently diagnosed with a kidney infection, and while that was going on her leaking was much worse. Now that the infection has resolved, her symptoms are still worse than they were before. She wears pads both at day and night, she leaks when she has an urge (like walking to the toilet) and with sneeze, cough, laugh. She does have a history of 2 vaginal deliveries with 2 episiotomies. She did have a gastric bypass in 2004 and hysterectomy in 1984 with hormone replacement, she does state that she retained one ovary. She does have a history of painful intercourse - pretty much her whole life although she is not sexually active currently. Treatment Goals Patient/Caregiver Goals Reduce leaking (both stress and urgency) Prior Functional Status Baseline Function- ADL's Independent Baseline Function- Mobility Independent Current Functional Impairments (Reported) Functional Limitations- ADL's urinary leaking Personal Factors Other Personal Factors That May Effect Recent kidney infection, hx Therapy/Recovery hysterectomy, hx painful intercourse PT-OP-C Subjective Start: 08/13/19 07:29 Freq: Status: Active Protocol: Document 08/20/19 09:00 AMB (Rec: 08/20/19 09:45 AMB [email or web address]) OP-PT Subjective Patient Comments Patient Comments Pt most bothered by urgency and frequency. PT-OP-I Pelvic Floor Start: 08/13/19 07:29 Freq: Status: Active Protocol: Document 08/13/19 09:00 AMB (Rec: 08/15/19 13:56 AMB [email or web address]) Pelvic Floor Assessment Urine Pelvic Floor Surgery Yes: hysterectomy Leakage Size Medium Leakage Cause Cough,Exercise,Lifting,Sneeze, Urge Other Leakage Causes pt reports she does not drink much fluid and does not have much urine when she does void Leaks Per Day 3 Voiding Frequency every 2 hours Nocturia 0-1 Urine Pad Type Panty Liner Pelvic Clock Pelvic Clock 12-3 Atrophy Pelvic Clock 3-6 Atrophy Pelvic Clock 6-9 Atrophy Pelvic Clock 9-12 Atrophy Pelvic Clock Other despite painful intercourse hx pt did not have significant tightness or pain with internal assessment Prolapse Cystocele Grade 2 Perineal Descent Resting Present Bearing Present Contraction Ability Voluntary Contraction Weak Voluntary Relaxation Moderate Manual Muscle Testing Left 2 Manual Muscle Testing Right 2 Manual Muscle Testing Anterior 2 Manual Muscle Testing Posterior 2 Muscle Endurance (Seconds) 5 Number of Quick Contractions In 10 4 Seconds PT-OP-Q Treatments Start: 08/13/19 07:29 Freq: Status: Active Protocol: Document 08/20/19 09:00 AMB (Rec: 08/20/19 09:45 AMB [id number]) Neuro Re-Education Treatment Other Activities 2 Details urge reduction techniques Comments at home trying to space time between voids to 1 hour 10 minutes 1 Details quick flicks and long hold with NMES Comments added in roll in PT-OP-T Assessment and Plan Start: 08/13/19 07:29 Freq: Status: Active Protocol: Document 08/20/19 09:00 AMB (Rec: 08/20/19 09:45 AMB [id number]) Physical Therapy Assessment Assessment Summary Assessment 6.2 avg resting baseline tone. Max 28.7, avg of 16.5. Pt is trying not to use abs but it is hard. Physical Therapy Plan Next Visit Focus/Plan Next Note Type Treatment Note Next Visit Plan being with sEMG if tolerates sensor, instruct in behavioral training to reduce urgency
--- NOTE | 2019-08-27 12:58 | PT.OTN ---
Current Diagnoses Mixed incontinence (08/27/19) Unspecified urinary incontinence (08/27/19) Physical Therapy Treatment Note PT-OP-A Visit Information Start: 08/13/19 07:29 Freq: Status: Active Protocol: Document 08/27/19 11:15 AMB (Rec: 08/27/19 12:58 AMB [email or web address]) Out-Patient Physical Therapy Visit Information Visit Information Visit Type Treatment Note Visit Start Time 11:15 Visit Stop Time 12:00 Total Visit Minutes 45 Visit Number 3 PT-OP-B Current Condition Start: 08/13/19 07:29 Freq: Status: Active Protocol: Document 08/13/19 09:00 AMB (Rec: 08/15/19 13:56 AMB [email or web address]) Current Condition History of Current Condition Onset Date 5 years ago, worse in last month Current Complaints urinary incontinence urgency and stress History of Current Condition Agustina Fernández has noticed urinary leaking for the past few years. She was recently diagnosed with a kidney infection, and while that was going on her leaking was much worse. Now that the infection has resolved, her symptoms are still worse than they were before. She wears pads both at day and night, she leaks when she has an urge (like walking to the toilet) and with sneeze, cough, laugh. She does have a history of 2 vaginal deliveries with 2 episiotomies. She did have a gastric bypass in 2004 and hysterectomy in 1984 with hormone replacement, she does state that she retained one ovary. She does have a history of painful intercourse - pretty much her whole life although she is not sexually active currently. Treatment Goals Patient/Caregiver Goals Reduce leaking (both stress and urgency) Prior Functional Status Baseline Function- ADL's Independent Baseline Function- Mobility Independent Current Functional Impairments (Reported) Functional Limitations- ADL's urinary leaking Personal Factors Other Personal Factors That May Effect Recent kidney infection, hx Therapy/Recovery hysterectomy, hx painful intercourse PT-OP-C Subjective Start: 08/13/19 07:29 Freq: Status: Active Protocol: Document 08/27/19 11:15 AMB (Rec: 08/27/19 12:58 AMB [email or web address]) OP-PT Subjective Patient Comments Patient Comments Pt having difficulty extending the time between voids, has been doing her exercises. PT-OP-I Pelvic Floor Start: 08/13/19 07:29 Freq: Status: Active Protocol: Document 08/13/19 09:00 AMB (Rec: 08/15/19 13:56 AMB [email or web address]) Pelvic Floor Assessment Urine Pelvic Floor Surgery Yes: hysterectomy Leakage Size Medium Leakage Cause Cough,Exercise,Lifting,Sneeze, Urge Other Leakage Causes pt reports she does not drink much fluid and does not have much urine when she does void Leaks Per Day 3 Voiding Frequency every 2 hours Nocturia 0-1 Urine Pad Type Panty Liner Pelvic Clock Pelvic Clock 12-3 Atrophy Pelvic Clock 3-6 Atrophy Pelvic Clock 6-9 Atrophy Pelvic Clock 9-12 Atrophy Pelvic Clock Other despite painful intercourse hx pt did not have significant tightness or pain with internal assessment Prolapse Cystocele Grade 2 Perineal Descent Resting Present Bearing Present Contraction Ability Voluntary Contraction Weak Voluntary Relaxation Moderate Manual Muscle Testing Left 2 Manual Muscle Testing Right 2 Manual Muscle Testing Anterior 2 Manual Muscle Testing Posterior 2 Muscle Endurance (Seconds) 5 Number of Quick Contractions In 10 4 Seconds PT-OP-Q Treatments Start: 08/13/19 07:29 Freq: Status: Active Protocol: Document 08/27/19 11:15 AMB (Rec: 08/27/19 12:58 AMB [email or web address]) Therapeutic Exercises Sitting Exercises 1 Sitting Exercise Name roll in roll out Resistance #2 band Comments 2x10 Neuro Re-Education Treatment Other Activities 1 Details quick flicks and long hold with sEMG PT-OP-T Assessment and Plan Start: 08/13/19 07:29 Freq: Status: Active Protocol: Document 08/27/19 11:15 AMB (Rec: 08/27/19 12:58 AMB [email or web address]) Physical Therapy Assessment Assessment Summary Assessment Pt with better endurance today , but continues to have a hard time not compensating Physical Therapy Plan Next Visit Focus/Plan Next Note Type Treatment Note Next Visit Plan being with sEMG if tolerates sensor, instruct in behavioral training to reduce urgency
--- NOTE | 2019-08-31 12:52 | PT.OTN ---
Current Diagnoses Mixed incontinence (08/30/19) Unspecified urinary incontinence (08/30/19) Physical Therapy Treatment Note PT-OP-A Visit Information Start: 08/13/19 07:29 Freq: Status: Active Protocol: Document 08/30/19 10:30 AMB (Rec: 08/30/19 16:10 AMB [id number]) Out-Patient Physical Therapy Visit Information Visit Information Visit Type Treatment Note Visit Start Time 10:30 Visit Stop Time 11:15 Total Visit Minutes 45 Visit Number 4 PT-OP-B Current Condition Start: 08/13/19 07:29 Freq: Status: Active Protocol: Document 08/13/19 09:00 AMB (Rec: 08/15/19 13:56 AMB [email or web address]) Current Condition History of Current Condition Onset Date 5 years ago, worse in last month Current Complaints urinary incontinence urgency and stress History of Current Condition Agustina Fernández has noticed urinary leaking for the past few years. She was recently diagnosed with a kidney infection, and while that was going on her leaking was much worse. Now that the infection has resolved, her symptoms are still worse than they were before. She wears pads both at day and night, she leaks when she has an urge (like walking to the toilet) and with sneeze, cough, laugh. She does have a history of 2 vaginal deliveries with 2 episiotomies. She did have a gastric bypass in 2004 and hysterectomy in 1984 with hormone replacement, she does state that she retained one ovary. She does have a history of painful intercourse - pretty much her whole life although she is not sexually active currently. Treatment Goals Patient/Caregiver Goals Reduce leaking (both stress and urgency) Prior Functional Status Baseline Function- ADL's Independent Baseline Function- Mobility Independent Current Functional Impairments (Reported) Functional Limitations- ADL's urinary leaking Personal Factors Other Personal Factors That May Effect Recent kidney infection, hx Therapy/Recovery hysterectomy, hx painful intercourse PT-OP-C Subjective Start: 08/13/19 07:29 Freq: Status: Active Protocol: Document 08/30/19 10:30 AMB (Rec: 08/31/19 11:17 AMB [email or web address]) OP-PT Subjective Patient Comments Patient Comments Pt almost made it ot the bathroom, she felt the urge to go, did her kegels, the urge diminished, she walked to the bathroom, but once she got into the bathroom she leaked , but it wasn't a lot. PT-OP-I Pelvic Floor Start: 08/13/19 07:29 Freq: Status: Active Protocol: Document 08/13/19 09:00 AMB (Rec: 08/15/19 13:56 AMB [email or web address]) Pelvic Floor Assessment Urine Pelvic Floor Surgery Yes: hysterectomy Leakage Size Medium Leakage Cause Cough,Exercise,Lifting,Sneeze, Urge Other Leakage Causes pt reports she does not drink much fluid and does not have much urine when she does void Leaks Per Day 3 Voiding Frequency every 2 hours Nocturia 0-1 Urine Pad Type Panty Liner Pelvic Clock Pelvic Clock 12-3 Atrophy Pelvic Clock 3-6 Atrophy Pelvic Clock 6-9 Atrophy Pelvic Clock 9-12 Atrophy Pelvic Clock Other despite painful intercourse hx pt did not have significant tightness or pain with internal assessment Prolapse Cystocele Grade 2 Perineal Descent Resting Present Bearing Present Contraction Ability Voluntary Contraction Weak Voluntary Relaxation Moderate Manual Muscle Testing Left 2 Manual Muscle Testing Right 2 Manual Muscle Testing Anterior 2 Manual Muscle Testing Posterior 2 Muscle Endurance (Seconds) 5 Number of Quick Contractions In 10 4 Seconds PT-OP-Q Treatments Start: 08/13/19 07:29 Freq: Status: Active Protocol: Document 08/30/19 10:30 AMB (Rec: 08/31/19 12:52 AMB [email or web address]) Therapeutic Exercises Sitting Exercises 1 Sitting Exercise Name roll in roll out Resistance #2 band Comments 2x10 Standing Exercises 2 Standing Exercise Name sit to stand Reps/Minutes x5 Comments pelvic floor contraction during 1 Standing Exercise Name quick flicks in standing Comments doable, long holds harder Neuro Re-Education Treatment Other Activities 1 Details quick flicks and long hold with sEMG PT-OP-T Assessment and Plan Start: 08/13/19 07:29 Freq: Status: Active Protocol: Document 08/30/19 10:30 AMB (Rec: 08/31/19 11:17 AMB [email or web address]) Physical Therapy Assessment Assessment Summary Assessment Pt with a better time not compensating with abdominals today. Physical Therapy Plan Next Visit Focus/Plan Next Note Type Treatment Note Next Visit Plan continue with strengthening, working into standing, instruct in behavioral training to reduce urgency
--- NOTE | 2019-09-06 10:29 | PT-OP ANOTE ---
Called patient at 10:05 for her 9:45 appointment and she was very apologetic and said that she thought her appointment was at 10:30. She and her are going on a trip and will be out of the country for the next month. She asks that we put her on hold for that month and she will contact us when she gets back.
--- NOTE | 2019-12-09 08:02 | PT.OPDS ---
Current Diagnoses Mixed incontinence (08/30/19) Unspecified urinary incontinence (08/30/19) Visit Care Team Role Provider Type Gema Heredia PA-C Primary Care Provider Advanced Lamination Operator Specialty: Medical Address: [address] [place] [address], [facility] [address], [place], [address] Email: [email or web address] DENNY Riley Attending Provider Advanced Lamination Operator Specialty: Family Practice Address: [address] [place] [address], [id number] Email: [email or web address] Visit Number Visit Number 4 Discharge Summary PT-OP-B Current Condition Start: 08/13/19 07:29 Freq: Status: Active Protocol: Document 08/13/19 09:00 AMB (Rec: 08/15/19 13:56 AMB [email or web address]) Current Condition History of Current Condition Onset Date 5 years ago, worse in last month Current Complaints urinary incontinence urgency and stress History of Current Condition Agustina Fernández has noticed urinary leaking for the past few years. She was recently diagnosed with a kidney infection, and while that was going on her leaking was much worse. Now that the infection has resolved, her symptoms are still worse than they were before. She wears pads both at day and night, she leaks when she has an urge (like walking to the toilet) and with sneeze, cough, laugh. She does have a history of 2 vaginal deliveries with 2 episiotomies. She did have a gastric bypass in 2004 and hysterectomy in 1984 with hormone replacement, she does state that she retained one ovary. She does have a history of painful intercourse - pretty much her whole life although she is not sexually active currently. Treatment Goals Patient/Caregiver Goals Reduce leaking (both stress and urgency) Prior Functional Status Baseline Function- ADL's Independent Baseline Function- Mobility Independent Current Functional Impairments (Reported) Functional Limitations- ADL's urinary leaking Personal Factors Other Personal Factors That May Effect Recent kidney infection, hx Therapy/Recovery hysterectomy, hx painful intercourse PT-OP-C Subjective Start: 08/13/19 07:29 Freq: Status: Active Protocol: Document 08/30/19 10:30 AMB (Rec: 08/31/19 11:17 AMB [email or web address]) OP-PT Subjective Patient Comments Patient Comments Pt almost made it ot the bathroom, she felt the urge to go, did her kegels, the urge diminished, she walked to the bathroom, but once she got into the bathroom she leaked , but it wasn't a lot. PT-OP-I Pelvic Floor Start: 08/13/19 07:29 Freq: Status: Active Protocol: Document 08/13/19 09:00 AMB (Rec: 08/15/19 13:56 AMB [email or web address]) Pelvic Floor Assessment Urine Pelvic Floor Surgery Yes: hysterectomy Leakage Size Medium Leakage Cause Cough,Exercise,Lifting,Sneeze, Urge Other Leakage Causes pt reports she does not drink much fluid and does not have much urine when she does void Leaks Per Day 3 Voiding Frequency every 2 hours Nocturia 0-1 Urine Pad Type Panty Liner Pelvic Clock Pelvic Clock 12-3 Atrophy Pelvic Clock 3-6 Atrophy Pelvic Clock 6-9 Atrophy Pelvic Clock 9-12 Atrophy Pelvic Clock Other despite painful intercourse hx pt did not have significant tightness or pain with internal assessment Prolapse Cystocele Grade 2 Perineal Descent Resting Present Bearing Present Contraction Ability Voluntary Contraction Weak Voluntary Relaxation Moderate Manual Muscle Testing Left 2 Manual Muscle Testing Right 2 Manual Muscle Testing Anterior 2 Manual Muscle Testing Posterior 2 Muscle Endurance (Seconds) 5 Number of Quick Contractions In 10 4 Seconds PT-OP-T Assessment and Plan Start: 08/13/19 07:29 Freq: Status: Active Protocol: Document 12/09/19 07:58 AMB (Rec: 12/09/19 08:01 AMB [id number]) Physical Therapy Assessment Goals Two Impairment urge incontinence Short Term Goal (STG) Pradeep will use pelvic floor contractions and focused relaxation to calmly walk to the toilet to avoid leaking due to urgency. STG Duration 4 weeks One Impairment stress incontinence Short Term Goal (STG) Pradeep will be independent with a pelvic floor strengthening program. STG Duration 4 weeks Senior Living Goal (LTG) Pradeep will be able to contract her pelvic floor when coughing to avoid leaking. LTG Duration 8 weeks Assessment Summary Assessment Pradeep accedentally no showed her last scheduled appointment , then went on vacation and has not called to reschedule since then. Since she has not been seen since August she is now discharged from PT. At the time of her last visit, she had been using urge reduction and it was somewhat working, continuing to have some leaking, but better. Physical Therapy Plan Discharge Physical Therapy Discharge Reasons No Longer Attending PT
== END 2019-12-10 08:22 ==
LOC: PHYS 10:30
PROVIDERS: PCP Physician Assistant; Visit Provider Nurse Practitioner
DX: N39.46 Mixed incontinence (principal)
CPT/HCPCS: 97110; 97112; 97161

== ENCOUNTER → 2020-06-26 10:33 | Outpatient (CLI) | payer MEDICARE, SELFPAY ==
[2020-06-26 11:07] LABS: Add Manual Diff / Slide Review NO; Basophils Absolute Auto 0 /uL (0-100); Basophils Percent Auto 0.6 % (0-2); Eosinophils Absolute Auto 200 /uL (0-450); Eosinophils Percent Auto 4.5 % (2-4); Hematocrit 36.2 % (36-46); Hemoglobin 11.9 g/dL (12.0-16.0); Lymphocytes Absolute Auto 1900 /uL (1100-4500); Lymphocytes Percent Auto 36.2 % (25-40); Mean Corpuscular HGB Conc 32.9 % (30-36); Mean Corpuscular Hemoglobin 26.7 PG (26-34); Mean Corpuscular Volume 81.1 fL (80-100); Monocytes Absolute Auto 500 /uL (0-900); Monocytes Percent Auto 9.8 % (3-14); Neutrophils Absolute Auto 2600 /uL (1500-7000); Neutrophils Percent Auto 48.9 % (50-75); Platelet Count 339 X10^3/uL (150-400); Red Blood Cell Count 4.46 X10^6/uL (4.0-5.2); Red Cell Distribution Width 16.2 % (11.6-14.8); White Blood Cell Count 5.2 X10^3/uL (4.5-11.0)
[2020-06-26 11:32] LABS: Alanine Aminotransferase 23 IU/L (<35); Albumin Globulin Ratio 1.3 (1.0-2.8); Alkaline Phosphatase 99 U/L (38-126); Aspartate Aminotransferase 43 IU/L (14-36); BUN Creatinine Ratio 19.5 (6-22); Bilirubin Total 0.4 mg/dL (0.2-1.3); Blood Urea Nitrogen 15 mg/dL (7-17); Calcium 9.1 mg/dL (8.4-10.2); Carbon Dioxide 26 mmol/L (22-32); Chloride 106 mmol/L (98-107); Cholesterol 224 mg/dL (140-199); Estimated Glomerular Filt Rate > 60.0 mL/min (>60); Globulin 3.1 g/dL (1.7-4.1); Glucose 100 mg/dL (80-110); HDL Cholesterol 64 mg/dL (40-60); HEMOLYSIS < 15 (0-50); LDL Cholesterol Calculated 129 mg/dL (<100); Potassium 4.5 mmol/L (3.4-5.1); Sodium 139 mmol/L (137-145); Total Protein 7.1 g/dL (6.3-8.2); Triglycerides 154 mg/dL (35-150)
[2020-06-26 11:46] LABS: Free T3, Triiodothyronine Free 3.01 pg/mL (2.77-5.27); Free T4, Direct Thyroxine 0.83 ng/dL (0.78-2.19)
[2020-06-26 12:00] LABS: Thyroid Stimulating Hormone 3.61 uIU/mL (0.47-4.68)
[2020-06-26 16:51] LABS: Hep C Virus Ab w/Reflex Quant NEGATIVE s/c (NEGATIVE)
[2020-06-27 12:21] LABS: Fecal Immunochemical Test Negative (Negative)
== END ==
PROVIDERS: PCP Nurse Practitioner; Referring Provider Nurse Practitioner; Visit Provider Nurse Practitioner
DX: E78.5 Hyperlipidemia, unspecified (principal); E66.9 Obesity, unspecified; F33.42 Major depressive disorder, recurrent, in full remission; R00.1 Bradycardia, unspecified; Z11.59 Encounter for screening for other viral diseases; Z91.89 Other specified personal risk factors, not elsewhere classified; R73.01 Impaired fasting glucose; R53.83 Other fatigue; Z86.2 Personal history of diseases of the blood and blood-forming organs and certain disorders involving the immune mechanism; Z12.11 Encounter for screening for malignant neoplasm of colon
CPT/HCPCS: 36415; 80053; 80061; 82274; 84439; 84443; 84481; 85025; 86803

== ENCOUNTER → 2020-07-19 09:46 | Outpatient (CLI) | payer MEDICARE, SELFPAY | PROVIDERS: PCP Nurse Practitioner; Referring Provider Nurse Practitioner; Visit Provider Nurse Practitioner | DX: M85.852 Other specified disorders of bone density and structure, left thigh (principal); Z78.0 Asymptomatic menopausal state; Z87.891 Personal history of nicotine dependence | CPT/HCPCS: 77080 ==

== ENCOUNTER → 2020-08-30 17:28 | Outpatient (CLI) | payer MEDICARE, SELFPAY ==
--- NOTE | 2020-08-30 17:30 | DI.MG.S_ITS ---
BILATERAL DIGITAL SCREENING MAMMOGRAM 3D/2D WITH CAD: 08/30/2020 CLINICAL: Routine screening. Family history of breast cancer. Comparison is made to exams dated: 08/20/2019 mammogram, 08/19/2018 mammogram - [facility], and 06/30/2017 mammogram - [facility]. There are scattered fibroglandular elements in both breasts. Current study was also evaluated with a Computer Aided Detection (CAD) system. No significant masses, calcifications, or other findings are seen in either breast. There has been no significant interval change. IMPRESSION: NEGATIVE There is no mammographic evidence of malignancy. A 1 year screening mammogram is recommended. This exam was interpreted at Station ID: [id number]. NOTE: For mammograms, a report in lay terms will be sent to the patient. Approximately 15% of breast malignancies will not be visualized mammographically. In the management of a palpable breast mass, a negative mammogram must not discourage biopsy of a clinically suspicious lesion. Electronically Signed By: Princess urrutia/leni:09/05/2020 16:06:45 letter sent: Normal Exam ACR BI-RADS Category 1: Negative 3341F
== END ==
PROVIDERS: PCP Nurse Practitioner; Referring Provider Nurse Practitioner; Visit Provider Nurse Practitioner
DX: Z12.31 Encounter for screening mammogram for malignant neoplasm of breast (principal); Z80.3 Family history of malignant neoplasm of breast
CPT/HCPCS: 77063; 77067

== ENCOUNTER → 2020-12-15 09:33 | Outpatient (CLI) | payer MEDICARE, SELFPAY ==
[2020-12-15] MEDS: COVID-19 VACC, Ad26(JANSSEN)/PF 0.5 ML IM (09:35)
== END ==
PROVIDERS: PCP Nurse Practitioner; Visit Provider Internal Medicine
DX: Z23 Encounter for immunization (principal)
CPT/HCPCS: 0031A; 91303

== ENCOUNTER 2021-05-21 22:13 | Emergency (ER) | payer MEDICARE, SELFPAY ==
[2021-05-21 22:24] VITALS: BP 162/77; PULSE 89; RESP 16; TEMP 36.8; O2SAT 95; BMI 35.4
[2021-05-21 22:47] LABS: Add Manual Diff / Slide Review NO; Basophils Absolute Auto 300 /uL (0-100); Basophils Percent Auto 3.2 % (0-2); Eosinophils Absolute Auto 0 /uL (0-450); Hemoglobin 11.7 g/dL (12.0-16.0); Lymphocytes Absolute Auto 500 /uL (1100-4500); Lymphocytes Percent Auto 6.1 % (25-40); Mean Corpuscular HGB Conc 31.8 % (30-36); Mean Corpuscular Hemoglobin 25.4 PG (26-34); Mean Corpuscular Volume 79.9 fL (80-100); Monocytes Absolute Auto 0 /uL (0-900); Monocytes Percent Auto 0.4 % (3-14); Neutrophils Absolute Auto 8000 /uL (1500-7000); Neutrophils Percent Auto 90.3 % (50-75); Platelet Count 383 X10^3/uL (150-400); Red Blood Cell Count 4.63 X10^6/uL (4.0-5.2); Red Cell Distribution Width 15.4 % (11.6-14.8); White Blood Cell Count 8.8 X10^3/uL (4.5-11.0)
[2021-05-21 22:54] LABS: Alanine Aminotransferase 22 IU/L (<35); Albumin 4.7 g/dL (3.5-5.0); Albumin Globulin Ratio 1.3 (1.0-2.8); Alkaline Phosphatase 89 U/L (38-126); Aspartate Aminotransferase 44 IU/L (14-36); BUN Creatinine Ratio 22.4 (6-22); Bilirubin Total 0.3 mg/dL (0.2-1.3); Blood Urea Nitrogen 17 mg/dL (7-17); Calcium 9.5 mg/dL (8.4-10.2); Carbon Dioxide 22 mmol/L (22-32); Chloride 108 mmol/L (98-107); Estimated Glomerular Filt Rate > 60.0 mL/min (>60); Globulin 3.5 g/dL (1.7-4.1); Glucose 164 mg/dL (80-110); HEMOLYSIS < 15 (0-50); Lipase 384 U/L (23-300); Potassium 4.1 mmol/L (3.4-5.1); Sodium 140 mmol/L (137-145); Total Protein 8.2 g/dL (6.3-8.2)
[2021-05-21 23:02] VITALS: PULSE 78; RESP 22; O2SAT 93
[2021-05-21 23:05] VITALS: BP 157/74; PULSE 77; RESP 23; O2SAT 93
[2021-05-21 23:30] VITALS: PULSE 79; O2SAT 94
[2021-05-21] MEDS: GLUCAGON,HUMAN RECOMBINANT 1 MG/ML VIAL IV (23:31)
--- NOTE | 2021-05-21 23:39 | PC.NURSE ---
Patient drank approx 8oz of luke warm layo cornel, stayed down for [id number], patient had large emesis of liquid with partially digested food, some relief. Able to take a deep breath and reports some improvement of pressure.
[2021-05-22] VITALS (7 sets, daily range): BP systolic 123–158; BP diastolic 66–91; PULSE 69–88; RESP 13–16; O2SAT 93–95
--- NOTE | 2021-05-22 00:05 | DI.CT.S_ITS ---
PROCEDURE: CT ABDOMEN PELVIS W CON INDICATIONS: severe epigastric pain TECHNIQUE: After the administration of intravenous contrast, axial sections acquired from the lung bases to the pubic symphysis. Coronal and sagittal reformats were performed. For radiation dose reduction, the following was used: automated exposure control, adjustment of mA and/or kV according to patient size. COMPARISON: None. FINDINGS: Image quality: Excellent. Lung bases: 6 mm solid nodule is noted in posterior lateral aspect of left lower lobe series 3, image 7. 1.1 cm partially calcified nodule is seen in posterior lateral aspect of left lung base series 3, image 26. No pleural effusion or pneumothorax.. Heart: Heart size is mildly enlarged, no pericardial effusion. ABDOMEN: Liver: Mild hepatic steatosis is seen, no discrete hepatic lesion. Gallbladder: Gallbladder is surgically absent. Biliary ducts: Unremarkable. Pancreas: Unremarkable. Spleen: Unremarkable. Adrenal Glands: Unremarkable. Kidneys and Ureters: Unremarkable. Stomach and Bowel: There is prior Johanna-en-Y gastrojejunostomy with postsurgical changes seen in left upper quadrant abdomen. Small hiatal hernia is seen. No evidence of bowel obstruction. No abnormal bowel wall thickening or mesenteric fat stranding. Mild fecal stasis in the colon is seen. Appendix is visualized and is within normal limits. Mild to moderate colonic diverticulosis is seen, no CT evidence of acute diverticulitis. No abscess collection. Peritoneum: No abnormal intraperitoneal fluid. No free air. Periampullary lipoma measures 1.9 x 2.2 cm in size is seen series 2, image 31. Ventral Wall: Small umbilical hernia is seen containing fat only. Abdominal Nodes: No retroperitoneal or mesenteric adenopathy by size criteria. Vessels: Aorta and inferior vena cava are normal in size. PELVIS: Pelvic Organs: Unremarkable. Bladder: Unremarkable. Pelvic Nodes: No enlarged lymph nodes. Miscellaneous: No hernias are seen. Bones: No acute compression fracture or spondylolisthesis. Degenerative disc disease throughout lumbar spine is seen. IMPRESSION: 1. Prior Johanna-en-Y gastrojejunostomy with postsurgical changes. No bowel obstruction or abnormal bowel wall thickening. No abscess collection. No free fluid or free air. 2. Normal appendix. Colonic diverticulosis without evidence of acute diverticulitis. 3. No renal stone or hydronephrosis. 4. 5 mm solid nodule seen in left lower lobe. 1.1 cm partially calcified nodule also seen in left lower lobe. Follow-up CT study of chest can be done in 6-12 months for evaluation of stability. No discrepancies from preliminary reading. Dictated by: Dudley Rojas M.D. on 05/22/2021 at 8:31 Approved by: Dudley Rojas M.D. on 05/22/2021 at 8:36
--- NOTE | 2021-05-22 00:42 | ED_ITS ---
HPI - Abdominal Pain General Chief Complaint: Abdominal Pain Stated Complaint: THROWING UP AFTER DINNER UNABLE TO GET WATER DOWN Time Seen by Provider: 05/21/21 22:17 Source: patient Mode of arrival: Ambulatory History of Present Illness HPI narrative: 70-year-old female former smoker with history of sleep apnea and GERD as well as a gastric bypass presents with her in the chief complaint of multiple episodes of vomiting and a fullness in her upper abdomen that started last evening after eating pulled pork. She denies much in the way of pain but does complain of a fullness in her upper belly and vomits any time she tries to eat or drink something. She has had no fever or chills. She denies any change in bowel habits or medications. She denies any history of the same. Related Data Home Medications Medication Instructions Recorded Confirmed diphenhydramine 25 2 tab PO BEDTIME PRN tab 03/17/19 04/27/21 mg-acetaminophen 500 mg tablet (Acetaminophen PM) [employer] DreamStation CPAP #1 ea 11/30/20 04/27/21 Device Previous Rx's Medication Instructions Recorded escitalopram oxalate 20 mg tablet 40 mg PO DAILY #180 tab 06/21/20 pantoprazole 20 mg tablet,delayed 20 mg PO BID #180 tab 06/21/20 release Allergies Allergy/AdvReac Type Severity Reaction Status Date / Time citalopram Allergy Unknown Verified 05/21/21 22:27 pantoprazole Allergy Unknown Verified 05/21/21 22:27 adhesive tape [ADHESIVE TAPE] AdvReac Intermediate BLISTER Verified 05/21/21 2 2:27 FROM SURGICAL TAPE Review of Systems Review of Systems Narrative: GENERAL: Denies chills, fatigue, malaise, fever, sweats. HEENT: Denies sinus pain, ear pain, sore throat, difficulty swallowing, dizziness. RESPIRATORY: Denies dyspnea, cough, wheezing, hemoptysis, sputum. CARDIOVASCULAR: Denies chest pain, palpitations, orthopnea, edema, GASTROINTESTINAL: See HPI : Denies dysuria, frequency, incontinence, hematuria, urinary retention. MUSCULOSKELETAL: denies weakness, joint pain, or bony pain SKIN: Denies rash, skin lesions, or other NEUROLOGIC: Denies weakness, headache, numbness, change in speech, confusion, seizures, incoordination. PSYCHIATRIC: No concerning psychosocial issues. 12 point review of systems is negative except for those stated above Patient History Medical History Abnormal EKG Actinic keratosis (1989) Anxiety (1999) Cataracts, bilateral (2013) Depression (1989) Fractures (1959) GERD (gastroesophageal reflux disease) (Unknown) Hearing loss (1989) History of gambling (1999) History of iron deficiency anemia History of melanoma excision (08/2014) Hyperlipidemia Incontinence Lipoma of arm Obesity (BMI 30-39.9) Obstructive sleep apnea, adult (~07/03/15) Osteoarthritis (1999) Osteopenia after menopause Osteoporosis (08/21/17) Pain in both hands Skin cancer (1994) Status post gastric bypass for obesity Tubular adenoma of colon (09/10/17) Surgical History History of carpal tunnel repair (1994) History of gastric bypass History of knee replacement History of skin surgery (2009) Hx of basal cell carcinoma excision (2010) Hx of blepharoplasty (~1989) Hx of cataract surgery (Unknown) Status post cholecystectomy Status post hysterectomy Family History Family/Other Adopted Social History Smoking Status: Former smoker Tobacco: How many years used: 20 second hand exposure: No alcohol intake: current substance use type: does not use Smoking Status: Former smoker alcohol intake frequency: 0-2 drinks per day Substance Use Type: does not use Exam Narrative Exam Narrative: GENERAL: [70] year old patient appears stated age. Well- developed patient, in mild distress. Holding an emesis bag HEAD: Atraumatic. Normocephalic. EYES: Pupils equal round and reactive. Extraocular motions intact. No scleral icterus. No injection or drainage. ENT: Nose without bleeding, purulent drainage. Throat without erythema, tonsillar hypertrophy or exudate. Airway patent. NECK: Trachea midline. Non tender CARDIOVASCULAR: Regular rate and rhythm without murmurs, gallops, or rubs. RESPIRATORY: Clear to auscultation. Breath sounds equal bilaterally. No wheezes, rales, or rhonchi. GASTROINTESTINAL: Abdomen soft, non-tender, nondistended. EXTREMITIES: No edema or joint tenderness. BACK: Nontender without deformity or crepitance. No flank tenderness. NEURO: AOx3. SKIN: No rash or erythema of visible areas Initial Vital Signs Initial Vital Signs: Vital Signs Temperature 98.2 F 05/21/21 22:24 Pulse Rate 89 05/21/21 22:24 Respiratory Rate 16 05/21/21 22:24 Blood Pressure 162/77 H 05/21/21 22:24 Pulse Oximetry 95 05/21/21 22:24 Course Orders Ordered: ED Orders 05/21/21 22:28 EKG-12 Lead Stat 05/21/21 22:35 Complete Blood Count AUTO DIFF Stat Comprehensive Metabolic Panel Stat Lipase Stat 05/22/21 00:05 CT abdomen pelvis w con Stat Discontinued Medications Glucagon (Glucagon,Human Recombinant 1 Mg/Ml Vial) 1 mg IV NOW ONE Stop: 05/21/21 23:23 Last Admin: 05/21/21 23:31 Dose: 1 mg Documented by: LINDA Reevaluation(s) Reevaluation #1: Elements of story are concerning for esophageal food bolus. On exam she has no pain. For this reason she is given glucagon immediately followed by sips of lukewarm layo cornel. She kept it down for less than 1 minute before vomiting a large amount, no improvement in symptoms. CT ordered Reevaluation #2: Over the course of the visit patient's symptoms resolved. She is able to keep clear liquids down without difficulty. She no longer has fullness in her epigastrium. Consultations Consultation #1: Discussed with on-call General surgery, very reassuring history and physical. Imaging is quite helpful in labs reassuring. Patient given return precautions and encouraged to follow closely with her doctor Vital Signs Vital signs: Vital Signs - 8 hr 05/21/21 22:24 05/21/21 23:02 05/21/21 23:05 Temperature 98.2 F Pulse Rate 89 78 77 Respiratory Rate 16 22 23 Blood Pressure 162/77 H 157/74 H Pulse Oximetry 95 93 93 05/21/21 23:30 05/22/21 00:00 05/22/21 00:34 Temperature Pulse Rate 79 75 Respiratory Rate Blood Pressure Pulse Oximetry 94 95 94 05/22/21 00:35 05/22/21 01:00 05/22/21 01:01 Temperature Pulse Rate 88 74 75 Respiratory Rate 13 15 Blood Pressure 158/77 H 136/66 Pulse Oximetry 95 95 95 05/22/21 01:30 05/22/21 02:00 Temperature Pulse Rate 70 69 Respiratory Rate 14 16 Blood Pressure 123/66 126/91 H Pulse Oximetry 93 95 MDM - Abdominal Pain Lab Data Result diagrams: 05/21/21 22:35 05/21/21 22:35 Labs: Lab Results 05/21/21 05/21/21 Range/Units 22:35 22:35 WBC 8.8 (4.5-11.0) X10^3/uL RBC 4.63 (4.0-5.2) X10^6/uL Hgb 11.7 L (12.0-16.0) g/dL Hct 37.0 (36-46) % MCV 79.9 L (80-100) fL MCH 25.4 L (26-34) PG MCHC 31.8 (30-36) % RDW 15.4 H (11.6-14.8) % Plt Count 383 (150-400) X10^3/uL Neut % (Auto) 90.3 H (50-75) % Lymph % (Auto) 6.1 L (25-40) % [place] % (Auto) 0.4 L (3-14) % Eos % (Auto) 0.0 L (2-4) % Baso % (Auto) 3.2 H (0-2) % Neut # (Auto) 8000 H (9493-2015) /uL Lymph # (Auto) 500 L (5835-9032) /uL [place] # (Auto) 0 (0-900) /uL Eos # (Auto) 0 (0-450) /uL Baso # (Auto) 300 H (0-100) /uL Sodium 140 (137-145) mmol/L Potassium 4.1 (3.4-5.1) mmol/L Chloride 108 H (98-107) mmol/L Carbon Dioxide 22 (22-32) mmol/L BUN 17 (7-17) mg/dL Creatinine 0.76 (0.52-1.04) mg/dL Estimated GFR > 60.0 (>60) mL/min BUN/Creatinine Ratio 22.4 H (6-22) Glucose 164 H (80-110) mg/dL Calcium 9.5 (8.4-10.2) mg/dL Total Bilirubin 0.3 (0.2-1.3) mg/dL AST 44 H (14-36) IU/L ALT 22 (<35) IU/L Alkaline Phosphatase 89 (38-126) U/L Total Protein 8.2 (6.3-8.2) g/dL Albumin 4.7 (3.5-5.0) g/dL Globulin 3.5 (1.7-4.1) g/dL Albumin/Globulin Ratio 1.3 (1.0-2.8) Lipase 384 H (23-300) U/L Point of care testing: Urine Dip Bedside Urine Glucose Negative Bedside Urine Bilirubin - Negative Bedside Urine Ketone + 15 Urine Specific [place] 1.025 Bedside Urine Occult Blood - Negative Bedside Urine pH 6.0 Bedside Urine Protein - Negative Bedside Urine Urobilinogen - Negative Bedside Urine Nitrite - Negative Bedside Urine Leukocytes - Negative Esterase Imaging Data CT scan - abdomen/pelvis: Radiologist's Impression: No acute findings. Status post cholecystectomy. Unremarkable bladder. No peripancreatic stranding, focal decreased enhancement or fluid collection. Status post Johanna-en-Y gastrojejunostomy [facility] Narrative Medical decision making narrative: 70-year-old female with nausea, vomiting, epigastric fullness. Symptoms concerning for esophageal foreign body which seemed to have completely resolved after above-stated therapies. She is able to keep liquids down without difficulty. Other diagnoses such as pancreatitis considered given slightly elevated lipase, however patient has no reproducible discomfort, no ongoing pain, no imaging abnormalities. Additionally, consequ ences of her gastric bypass considered but thought unlikely given lack of findings on CT scan. Return precautions given and questions answered to her apparent satisfaction. Discharge Plan Departure Patient Disposition: Home Clinical Impression: Esophageal foreign body Qualifiers: Encounter type: initial encounter Qualified Code(s): T18.108A - Unspecified foreign body in esophagus causing other injury, initial encounter Instructions: DI for Removal of Foreign Body From Esophagus Activity Restrictions/Additional Instructions: *You have been diagnosed with [epigastric discomfort and vomiting likely a consequence of an esophageal foreign body which has since resolved.] *What to do: *Please continue to take your regular medications as directed. [] New medication prescriptions sent to your pharmacy: [ ] [ ] New medication written as a paper prescription [ x] No new medications given *Please follow up with your primary care provider in 2-3 days, call for an appointment. Let them know you were seen in the Emergency Department and that we ask that you be seen in follow up. We will electronically transmit a record of today's note if your PCP is in our system *If you do not have a primary care provider please contact the [facility] Resource line at [phone]. They will ask some questions about your medical history and help get you set up with a doctor in the community. *Return to Emergency Department if you should have any new, worsening or concerning symptoms, such as [fever greater than 101 F, shaking chills, worsening pain, persistent vomiting or other bothersome symptoms] Prescriptions: No Action pantoprazole 20 mg tablet,delayed release (DR/EC) 20 mg PO BID Qty: 180 RF: 3 escitalopram oxalate 20 mg tablet 40 mg PO DAILY Qty: 180 RF: 3 diphenhydramine-acetaminophen [Acetaminophen PM] 25-500 mg tablet 2 tab PO BEDTIME PRN (Reason: Sleep) RF: 0 (DME) [employer] DreamStation CPAP Device 0 .Route .MEDSUPPLY Qty: 1 RF: 0 Referrals: Christine Hill ARNP [Primary Care Provider] -
--- NOTE | 2021-05-22 02:18 | PC.NURSE ---
Patient able to drink without vomiting. PO challenge successful.
== END 2021-05-22 02:19 | disposition home or self-care (01) ==
PROVIDERS: Emergency Provider Emergency Medicine; PCP Nurse Practitioner
DX: T18.108A Unspecified foreign body in esophagus causing other injury, initial encounter (principal); R11.2 Nausea with vomiting, unspecified; R10.9 Unspecified abdominal pain
CPT/HCPCS: 36415; 74177; 80053; 81003; 83690; 85025; 93005; 93010; 96374; 99284; J1610; Q9967

== ENCOUNTER → 2021-06-19 09:18 | Outpatient (CLI) | payer MEDICARE, SELFPAY ==
[2021-06-19 10:49] LABS: Alanine Aminotransferase 25 IU/L (<35); Albumin 4.1 g/dL (3.5-5.0); Albumin Globulin Ratio 1.4 (1.0-2.8); Alkaline Phosphatase 79 U/L (38-126); Aspartate Aminotransferase 45 IU/L (14-36); BUN Creatinine Ratio 17.8 (6-22); Bilirubin Total 0.2 mg/dL (0.2-1.3); Blood Urea Nitrogen 13 mg/dL (7-17); Calcium 8.9 mg/dL (8.4-10.2); Carbon Dioxide 27 mmol/L (22-32); Chloride 108 mmol/L (98-107); Cholesterol 217 mg/dL (140-199); Estimated Glomerular Filt Rate > 60.0 mL/min (>60); Globulin 2.9 g/dL (1.7-4.1); Glucose 96 mg/dL (80-110); HDL Cholesterol 67 mg/dL (40-60); HEMOLYSIS < 15 (0-50); LDL Cholesterol Calculated 128 mg/dL (<100); Potassium 4.3 mmol/L (3.4-5.1); Sodium 141 mmol/L (137-145); Triglycerides 110 mg/dL (35-150)
[2021-06-19 11:03] LABS: Free T3, Triiodothyronine Free 3.22 pg/mL (2.77-5.27); Free T4, Direct Thyroxine 0.78 ng/dL (0.78-2.19)
[2021-06-19 11:17] LABS: Thyroid Stimulating Hormone 1.92 uIU/mL (0.47-4.68)
== END ==
PROVIDERS: PCP Nurse Practitioner; Referring Provider Nurse Practitioner; Visit Provider Nurse Practitioner
DX: E78.5 Hyperlipidemia, unspecified (principal); F33.42 Major depressive disorder, recurrent, in full remission; Z79.899 Other long term (current) drug therapy; R73.01 Impaired fasting glucose
CPT/HCPCS: 36415; 80053; 80061; 84439; 84443; 84481

== ENCOUNTER → 2021-09-11 16:01 | Outpatient (CLI) | payer MEDICARE, SELFPAY ==
--- NOTE | 2021-09-11 16:03 | DI.MG.S_ITS ---
BILATERAL DIGITAL SCREENING MAMMOGRAM 3D/2D WITH CAD: 09/11/2021 CLINICAL: Routine screening. Family history of breast cancer. Comparison is made to exams dated: 08/30/2020 mammogram, 08/20/2019 mammogram - [facility], 06/30/2017 mammogram - [facility], and 08/19/2018 mammogram [facility]. There are scattered fibroglandular elements in both breasts. Current study was also evaluated with a Computer Aided Detection (CAD) system. No significant masses, calcifications, or other findings are seen in either breast. There has been no significant interval change. IMPRESSION: NEGATIVE There is no mammographic evidence of malignancy. A 1 year screening mammogram is recommended. This exam was interpreted at Station ID: [id number]. NOTE: For mammograms, a report in lay terms will be sent to the patient. Approximately 15% of breast malignancies will not be visualized mammographically. In the management of a palpable breast mass, a negative mammogram must not discourage biopsy of a clinically suspicious lesion. Electronically Signed By: Gray beckman/leni:09/11/2021 16:48:15 letter sent: Normal Exam ACR BI-RADS Category 1: Negative 3341F
== END ==
PROVIDERS: PCP Nurse Practitioner; Referring Provider Nurse Practitioner; Visit Provider Nurse Practitioner
DX: Z12.31 Encounter for screening mammogram for malignant neoplasm of breast (principal); Z80.3 Family history of malignant neoplasm of breast
CPT/HCPCS: 77063; 77067

== ENCOUNTER → 2021-10-30 14:10 | Outpatient (CLI) | payer MEDICARE, SELFPAY ==
[2021-10-30 15:29] LABS: BUN Creatinine Ratio 12.9 (6-22); Blood Urea Nitrogen 12 mg/dL (7-17); Calcium 9.8 mg/dL (8.4-10.2); Carbon Dioxide 28 mmol/L (22-32); Chloride 107 mmol/L (98-107); Estimated Glomerular Filt Rate 59.3 mL/min (>60); Glucose 101 mg/dL (80-110); HEMOLYSIS < 15 (0-50); Potassium 4.1 mmol/L (3.4-5.1); Sodium 140 mmol/L (137-145)
== END ==
PROVIDERS: PCP Nurse Practitioner; Referring Provider Nurse Practitioner; Visit Provider Nurse Practitioner
DX: Z01.812 Encounter for preprocedural laboratory examination (principal)
CPT/HCPCS: 36415; 80048

== ENCOUNTER → 2021-10-31 13:23 | Outpatient (CLI) | payer MEDICARE, SELFPAY ==
--- NOTE | 2021-10-31 13:26 | DI.CT.S_ITS ---
PROCEDURE: CT CHEST W CON INDICATIONS: pulmonary nodule follow up TECHNIQUE: After the administration of intravenous contrast, 5 mm thick sections acquired from the pulmonary apices to the posterior costophrenic angles. 1 mm axial lung, 5 mm thick coronal and sagittal reformats and 7 mm axial MIP were acquired. For radiation dose reduction, the following was used: automated exposure control, adjustment of mA and/or kV according to patient size. COMPARISON: [facility], CT, CT ABDOMEN PELVIS W CON, 05/22/2021, 0:15. FINDINGS: Image quality: Excellent. Lungs and pleura: A few pulmonary nodules. For example: -right lung base measuring 0.8 cm, (3/211), remotely 0.7 cm and in 2005. -left lung base measuring 1.1 cm with calcification, (3/240), remotely 1 cm. This nodule appears to have been biopsied on 07/19/2005. -left lower lobe 0.7 cm, (3/145), remotely 0.6 cm. No acute air space opacities. No pleural effusions or pneumothorax. Central and peripheral airways are patent and normal in caliber. Mediastinum: Heart size is normal. No pericardial effusion. No mediastinal or hilar adenopathy by size criteria. Thoracic aorta and central pulmonary arteries are normal in size. Esophagus is normal in caliber. No hiatal hernia. Bones and chest wall: No suspicious bony lesions. No vertebral body compression fractures. No axillary or supraclavicular adenopathy by size criteria. Thyroid gland is unremarkable. Abdomen: Visualized upper abdominal solid organs appear normal. Upper abdominal bowel loops are normal in caliber. Gastric bypass. Post cholecystectomy. IMPRESSION: 1. No new or enlarging pulmonary nodules. The pulmonary nodule seen at the lung bases are not significantly changed compared to 2004 suggesting a benign etiology. 2. No suspicious adenopathy. 3. No acute airspace opacity. Dictated by: Geraldo Obrien M.D. on 10/31/2021 at 14:26 Approved by: Geraldo Obrien M.D. on 10/31/2021 at 14:33
== END ==
PROVIDERS: PCP Nurse Practitioner; Referring Provider Nurse Practitioner; Visit Provider Nurse Practitioner
DX: R91.1 Solitary pulmonary nodule (principal)
CPT/HCPCS: 71260; Q9967

== ENCOUNTER → 2022-01-29 09:37 | Outpatient (CLI) | payer MEDICARE, SELFPAY ==
--- NOTE | 2022-01-29 09:38 | DI.RAD.S_ITS ---
PROCEDURE: XR RIBS LT MIN 3V W CXR1V INDICATIONS: Acute lateral back pain after fall on stairs TECHNIQUE: 2 views of the left ribs were acquired, along with a single view chest. COMPARISON: None. FINDINGS: Surgical changes and devices: Surgical clips noted in the right upper quadrant Bones and chest wall: No fractures or dislocations. No suspicious bony lesions. Overlying soft tissues appear unremarkable. Lungs and pleura: No pleural effusions or pneumothorax. Lungs appear clear. Mediastinum: Mediastinal contours appear normal. Heart size is normal. IMPRESSION: 1. No evidence of rib fracture or pneumothorax. 2. No acute cardiopulmonary findings Approved by: Jorge Jones M.D. on 01/29/2022 at 12:30
== END ==
PROVIDERS: PCP Nurse Practitioner; Referring Provider Nurse Practitioner; Visit Provider Nurse Practitioner
DX: M54.6 Pain in thoracic spine (principal); R07.81 Pleurodynia
CPT/HCPCS: 71101

== ENCOUNTER → 2022-07-06 07:49 | Outpatient (CLI) | payer MEDICARE, SELFPAY ==
[2022-07-06 08:15] LABS: Appearance Urine UA SL CLOUDY; Bilirubin Urine UA NEGATIVE (NEGATIVE); Color Urine UA YELLOW; Glucose Urine UA NEGATIVE (Negative); Ketones Urine UA NEGATIVE (NEGATIVE); Leukocyte Esterase Urine UA 1+ (NEGATIVE); Nitrite Urine UA NEGATIVE (Negative); Occult Blood Urine UA NEGATIVE (Negative); Protein Urine UA TRACE (Negative); Urobilinogen Urine UA 0.2 E.U./dL (0.2)
[2022-07-06 08:33] LABS: RBC Urine None Seen (0-5/HPF); Squamous Epithelial Cell Urine 1-5 /HPF (0-5/HPF); WBC Urine 1-5/HPF (0-5/HPF)
[2022-07-06 08:34] LABS: Bacteria Urine Few (2-10); Calcium Oxalate Crystals Urine Many; Culture Indicated Urine Specimen Cultured
== END ==
PROVIDERS: PCP Nurse Practitioner; Visit Provider Nurse Practitioner Critical Care Medicine
DX: R19.7 Diarrhea, unspecified (principal)
CPT/HCPCS: 81001; 87077; 87086; 87186

== ENCOUNTER → 2022-07-06 08:06 | Outpatient (CLI) | payer MEDICARE, SELFPAY ==
[2022-07-06 09:26] LABS: Add Manual Diff / Slide Review NO; Basophils Absolute Auto 0 /uL (0-100); Basophils Percent Auto 0.4 % (0-2); Eosinophils Absolute Auto 300 /uL (0-450); Eosinophils Percent Auto 5.8 % (2-4); Hematocrit 38.5 % (36-46); Hemoglobin 12.5 g/dL (12.0-16.0); Lymphocytes Absolute Auto 1400 /uL (1100-4500); Lymphocytes Percent Auto 25.7 % (25-40); Mean Corpuscular HGB Conc 32.5 % (30-36); Mean Corpuscular Hemoglobin 29.2 PG (26-34); Mean Corpuscular Volume 89.8 fL (80-100); Monocytes Absolute Auto 500 /uL (0-900); Monocytes Percent Auto 9.8 % (3-14); Neutrophils Absolute Auto 3100 /uL (1500-7000); Neutrophils Percent Auto 58.3 % (50-75); Platelet Count 329 X10^3/uL (150-400); Red Blood Cell Count 4.29 X10^6/uL (4.0-5.2); Red Cell Distribution Width 14.2 % (11.6-14.8); White Blood Cell Count 5.3 X10^3/uL (4.5-11.0)
[2022-07-06 09:49] LABS: Alanine Aminotransferase 18 IU/L (<35); Albumin 3.8 g/dL (3.5-5.0); Albumin Globulin Ratio 1.4 (1.0-2.8); Alkaline Phosphatase 78 U/L (38-126); Aspartate Aminotransferase 36 IU/L (14-36); BUN Creatinine Ratio 12.5 (6-22); Bilirubin Total 0.2 mg/dL (0.2-1.3); Blood Urea Nitrogen 9 mg/dL (7-17); C-Reactive Protein Quant 1.4 mg/dL (<1.0); Calcium 9.3 mg/dL (8.4-10.2); Carbon Dioxide 25 mmol/L (22-32); Chloride 106 mmol/L (98-107); Estimated Glomerular Filt Rate > 60 mL/min (>60); Globulin 2.8 g/dL (1.7-4.1); Glucose 89 mg/dL (80-110); HEMOLYSIS < 15 (0-50); Lipase 94 U/L (23-300); Magnesium 1.9 mg/dL (1.6-2.3); Potassium 4.2 mmol/L (3.4-5.1); Sodium 141 mmol/L (137-145); Total Protein 6.6 g/dL (6.3-8.2)
[2022-07-06 10:03] LABS: Procalcitonin 0.03 ng/mL (<0.5)
== END ==
PROVIDERS: PCP Nurse Practitioner; Referring Provider Nurse Practitioner Critical Care Medicine; Visit Provider Nurse Practitioner Critical Care Medicine
DX: R19.7 Diarrhea, unspecified (principal)
CPT/HCPCS: 36415; 80053; 81001; 83690; 83735; 84145; 85025; 86140; 87077; 87086; 87186; 87507

== ENCOUNTER → 2022-07-06 12:57 | Outpatient (CLI) | payer MEDICARE, SELFPAY ==
[2022-07-06 17:27] LABS: Campylobacter Not Detected (Not Detect); Clostridium difficile toxin AB Not Detected (Not Detect); Enteroaggregative E.coli Not Detected (Not Detect); Enteropathogenic E.coli Not Detected (Not Detect); Enterotoxigenic E.coli It/st Not Detected (Not Detect); Plesiomonsa shigelloides Not Detected (Not Detect); Salmonella Not Detected (Not Detect); Shiga-like toxin-prod E.coli Not Detected (Not Detect); Vibrio Not Detected (Not Detect); Vibrio cholerae Not Detected (Not Detect); Yersinia enterocolitica Not Detected (Not Detect)
[2022-07-06 17:28] LABS: Adenovirus F 40/41 Not Detected (Not Detect); Astrovirus Not Detected (Not Detect); Cryptosporidium Not Detected (Not Detect); Cyclospora cayetanensis Not Detected (Not Detect); Entamoeba histolytica Not Detected (Not Detect); Giardia lamblia Not Detected (Not Detect); Norovirus GI/GII Not Detected (Not Detect); Rotavirus A Not Detected (Not Detect); Sapovirus Not Detected (Not Detect); Shigella/Enteroinvasive E.coli Not Detected (Not Detect)
== END ==
PROVIDERS: PCP Nurse Practitioner; Referring Provider Nurse Practitioner Critical Care Medicine; Visit Provider Nurse Practitioner Critical Care Medicine
DX: R19.7 Diarrhea, unspecified (principal)
CPT/HCPCS: 87507

== ENCOUNTER → 2022-08-08 11:15 | Outpatient (CLI) | payer MEDICARE, SELFPAY ==
[2022-08-08 13:45] LABS: COVID19 -Nasal RAPID Negative (Negative)
== END ==
PROVIDERS: PCP Nurse Practitioner; Visit Provider Surgery
DX: Z20.822 Contact with and (suspected) exposure to COVID-19 (principal); Z01.812 Encounter for preprocedural laboratory examination
CPT/HCPCS: 87635; C9803

== ENCOUNTER 2022-08-09 11:27 | Day surgery (SDC) | payer MEDICARE, SELFPAY ==
--- NOTE | 2022-08-09 | PATH_ITS ---
[facility] Accession Number: [id number] . 01 Material submitted: . PART A: colon - HEPATIC FLEXURE POLYP PART B: rectum - RECTAL POLYPS . 01 Diagnosis: A. Hepatic Flexure Polyp, Polypectomy: Tubular adenoma. . B. Rectal Polyps, Polypectomy: Hyperplastic polyp(s). MRV 08/14/2022 1150 Local . 01 Electronically signed: . Radha Mondragon MD, Pathologist NPI- [id number] . 01 Gross description: . Part A: HEPATIC FLEXURE POLYP: Received in formalin are multiple fragment(s) of londono, soft tissue measuring 0.1 x 0.1 x 0.1 cm to 0.5 x 0.4 x 0.4 cm submitted entirely in 1 cassette(s) Part B: RECTAL POLYPS: Received in formalin are 4 fragment(s) of londono, soft tissue measuring 0.2 x 0.2 x 0.2 cm to 0.5 x 0.2 x 0.2 cm submitted entirely in 1 cassette(s) /MARCELO 08/12/20222047 Local . 01 Pathologist provided ICD-10: D12.6 . 01 CPT . 875873, 559337 Specimen Comment: A courtesy copy of this report has been sent to [facility] Pathology Performed at: 01 [facility] [address] [place] [address] [address], [place], [place] [id number] MD August Rosa MD Phone: [phone]
[2022-08-09 14:08] VITALS: PULSE 72; RESP 16; TEMP 36.6; O2SAT 97; BMI 34.7
[2022-08-09] MEDS: LACTATED RINGERS 1,000 ML 42 ML IV (14:24)
--- NOTE | 2022-08-09 14:54 | PM.PREOP ---
Pre-operative Note COVID-19 COVID-19 status: Negative Interval Note History & Physical reviewed/Exam performed by Physician: Yes Changes to H&P: No H&P completed within 30 days and has changed as indicated here:: doing well. prep went well.
--- NOTE | 2022-08-09 16:27 | P.OP.COLON_ITS ---
Operative Date/Time/Diagnoses Pre-op diagnosis: colonoscopy Post-op diagnosis: same Procedure & Clinicians Study performed: colonoscopy Same procedure as scheduled: Yes Indications: screening Surgeon: Jojo Torres Procedure Notes Procedure in detail: Patient was taken to the endoscopy suite and placed in a left lateral decubitus position with the help of anesthesia she was placed under conscious sedation. Time-out was performed. A digital rectal exam performed the colonoscope was in troduced and advanced to the cecum. The appendiceal orifice was visualized a photograph was taken. The withdrawal time was approximately 35 minutes because of several polypectomies. The 1st polyp was seen right about the hepatic flexure it was a snare was used with cautery to remove it. It was probably about 0.9 cm in size. It came out as 1 specimen. Next the colonoscope was retracted further. Were several scattered diverticula throughout the colon but many many in the sigmoid colon. Photographs were taken of these. The scope continued to be withdrawn retroflex was done no internal hemorrhoids appreciated. Photograph was taken and a few rectal polyps that were very very small maybe 1 mm or 2 mm in size were biopsied with biopsy forceps on the way out of the colon. There were probably a scattering of 5 or 6 of these and 4 or 5 were biopsied. Depending on the pathology results from the polyp at the hepatic flexure likely the follow-up will be between 3-5 years. Findings: divertiulosis and polyp(s) Specimen(s): other Complications: none Post-procedure Recommendations: Colonoscopy in 3 years and Colonoscopy in 5 years Disposition: PACU
[2022-08-09 16:30] VITALS: BP 109/69; PULSE 58; RESP 18; TEMP 36.3; O2SAT 96
[2022-08-09 16:35] VITALS: BP 104/75; PULSE 60; RESP 13; O2SAT 97
[2022-08-09 16:39] VITALS: BP 112/80; PULSE 61; RESP 19; TEMP 36.3; O2SAT 97
[2022-08-09 16:50] VITALS: BP 142/98; PULSE 63; RESP 14; TEMP 36.2; O2SAT 97
== END 2022-08-09 17:02 | disposition home or self-care (01) ==
PROVIDERS: PCP Nurse Practitioner; Referring Provider Surgery; Visit Provider Surgery
PROC: 0DJD8ZZ Inspection of Lower Intestinal Tract, Via Natural or Artificial Opening Endoscopic (ICD-10-PCS; CPT 45378; principal; 2022-08-09 12:45)
DX: Z12.11 Encounter for screening for malignant neoplasm of colon (principal); K57.30 Diverticulosis of large intestine without perforation or abscess without bleeding; D12.3 Benign neoplasm of transverse colon; K62.1 Rectal polyp
CPT/HCPCS: 45385; 45380; J2704

== ENCOUNTER → 2022-10-23 10:45 | Outpatient (CLI) | payer MEDICARE, SELFPAY ==
[2022-10-23 12:12] LABS: Add Manual Diff / Slide Review NO; Basophils Absolute Auto 0 /uL (0-100); Basophils Percent Auto 0.3 % (0-2); Eosinophils Absolute Auto 300 /uL (0-450); Eosinophils Percent Auto 6.7 % (2-4); Hematocrit 40.5 % (36-46); Hemoglobin 13.1 g/dL (12.0-16.0); Lymphocytes Absolute Auto 1800 /uL (1100-4500); Lymphocytes Percent Auto 36.8 % (25-40); Mean Corpuscular HGB Conc 32.3 % (30-36); Mean Corpuscular Hemoglobin 28.7 PG (26-34); Mean Corpuscular Volume 88.7 fL (80-100); Monocytes Absolute Auto 500 /uL (0-900); Monocytes Percent Auto 9.1 % (3-14); Neutrophils Absolute Auto 2300 /uL (1500-7000); Neutrophils Percent Auto 47.1 % (50-75); Platelet Count 294 X10^3/uL (150-400); Red Blood Cell Count 4.57 X10^6/uL (4.0-5.2); White Blood Cell Count 4.9 X10^3/uL (4.5-11.0)
[2022-10-23 12:34] LABS: HEMOLYSIS < 15 (0-50); Iron 112 ug/dL (37-170)
[2022-10-23 12:37] LABS: Alanine Aminotransferase 26 IU/L (<35); Alkaline Phosphatase 88 U/L (38-126); Aspartate Aminotransferase 43 IU/L (14-36); BUN Creatinine Ratio 16.9 (6-22); Bilirubin Total 0.3 mg/dL (0.2-1.3); Blood Urea Nitrogen 12 mg/dL (7-17); Carbon Dioxide 24 mmol/L (22-32); Chloride 105 mmol/L (98-107); Cholesterol 236 mg/dL (140-199); Estimated Glomerular Filt Rate > 60 mL/min (>60); Glucose 89 mg/dL (80-110); HDL Cholesterol 66 mg/dL (40-60); LDL Cholesterol Calculated 135 mg/dL (<100); Phosphorous 3.9 mg/dL (2.8-4.1); Potassium 4.4 mmol/L (3.4-5.1); Sodium 139 mmol/L (137-145); Triglycerides 175 mg/dL (35-150)
[2022-10-23 12:39] LABS: HEMOLYSIS < 15 (0-50); Total Protein 6.4 g/dL (6.3-8.2)
[2022-10-23 12:45] LABS: Percent Iron Saturation 31 % (15-50); Total Iron Binding Capacity 356 ug/dL (265-497); Transferrin 271 mg/dL (206-381)
[2022-10-23 12:52] LABS: Free T3, Triiodothyronine Free 3.59 pg/mL (2.77-5.27); Free T4, Direct Thyroxine 0.72 ng/dL (0.78-2.19)
[2022-10-23 13:06] LABS: Thyroid Stimulating Hormone 2.31 uIU/mL (0.47-4.68)
[2022-10-23 13:14] LABS: Ferritin 19 ng/mL (11-264)
[2022-10-23 13:45] LABS: Vitamin B12 > 1000 pg/mL (239-931)
[2022-10-23 16:23] LABS: Vitamin D 25 Hydroxy (D3) 78.5 ng/mL (30.0-100.0)
[2022-10-24 18:11] LABS: Zinc 87 ug/dL (44-115)
[2022-10-25 10:18] LABS: Calcium 8.8 mg/dL (8.7-10.3); Parathyroid Hormone, Intact 59 pg/mL (15-65)
[2022-10-25 16:37] LABS: Albumin 3.9 g/dL (3.5-5.0); Albumin Globulin Ratio 1.6 (1.0-2.8); Globulin 2.5 g/dL (1.7-4.1)
[2022-10-27 21:35] LABS: Vitamin A 56.3 ug/dL (22.0-69.5)
== END ==
PROVIDERS: PCP Nurse Practitioner; Referring Provider Nurse Practitioner; Visit Provider Nurse Practitioner
DX: E78.2 Mixed hyperlipidemia (principal); Z86.2 Personal history of diseases of the blood and blood-forming organs and certain disorders involving the immune mechanism; E78.5 Hyperlipidemia, unspecified; M85.80 Other specified disorders of bone density and structure, unspecified site; Z98.84 Bariatric surgery status
CPT/HCPCS: 36415; 80053; 80061; 82306; 82310; 82607; 82728; 82746; 83540; 83550; 83735; 83970; 84100; 84439; 84443; 84481; 84590; 84630; 85025

== ENCOUNTER → 2022-11-05 15:06 | Outpatient (CLI) | payer MEDICARE, SELFPAY ==
--- NOTE | 2022-11-05 15:08 | DI.MG.S_ITS ---
BILATERAL DIGITAL SCREENING MAMMOGRAM 3D/2D WITH CAD: 11/05/2022 CLINICAL: Routine screening. Family history of breast cancer. Comparison is made to exams dated: 09/11/2021 mammogram, 08/20/2019 mammogram, 08/30/2020 mammogram, and 08/19/2018 mammogram - [facility]. There are scattered areas of fibroglandular density in both breasts (category b / 25%-50% glandular tissue). Current study was also evaluated with a Computer Aided Detection (CAD) system. No significant masses, calcifications, or other findings are seen in either breast. There has been no significant interval change. IMPRESSION: NEGATIVE There is no mammographic evidence of malignancy. A 1 year screening mammogram is recommended. Based on the Tyrer Cuzick model (a risk assessment model) the patient's lifetime risk is 5.8% and her 10 year risk is 4.7%. According to the ACR, ACS, and NCCN guidelines, an annual breast MRI exam along with mammogram is recommended if the patient's lifetime risk is 20% or greater. This exam was interpreted at Station ID: [id number]. NOTE: For mammograms, a report in lay terms will be sent to the patient. Approximately 15% of breast malignancies will not be visualized mammographically. In the management of a palpable breast mass, a negative mammogram must not discourage biopsy of a clinically suspicious lesion. Electronically Signed By: Geraldo mcintosh/leni:11/06/2022 10:04:33 letter sent: Normal Exam ACR BI-RADS Category 1: Negative [id number]
== END ==
PROVIDERS: PCP Nurse Practitioner; Referring Provider Nurse Practitioner; Visit Provider Nurse Practitioner
DX: Z13.820 Encounter for screening for osteoporosis (principal); Z12.31 Encounter for screening mammogram for malignant neoplasm of breast; Z80.3 Family history of malignant neoplasm of breast; M85.851 Other specified disorders of bone density and structure, right thigh; Z78.0 Asymptomatic menopausal state; Z90.710 Acquired absence of both cervix and uterus
CPT/HCPCS: 77063; 77067; 77080

== ENCOUNTER → 2022-12-02 14:41 | Outpatient (CLI) | payer MEDICARE, SELFPAY ==
--- NOTE | 2022-12-02 14:42 | DI.US.S_ITS ---
PROCEDURE: US ABDOMEN LIMITED INDICATIONS: HEPATIC STEATOSIS TECHNIQUE: Real-time focused scanning was performed of the abdomen, with image documentation. COMPARISON: [facility], CT, CT ABDOMEN PELVIS W CON, 05/22/2021, 0:15. FINDINGS: The liver demonstrates normal size. The liver demonstrates generalized mildly increased echogenicity. This decreases ultrasound sensitivity for detection of hepatic masses. Status post cholecystectomy. There is no biliary dilatation, the common bile duct measures 5 mm. The pancreas is not well seen, secondary to overlying bowel gas. IMPRESSION: Mildly increased liver echogenicity is seen, which is consistent with the given clinical history hepatic steatosis. Status post cholecystectomy, without biliary dilatation. Dictated by: Madhu Her M.D. on 12/02/2022 at 16:03 Approved by: Madhu Her M.D. on 12/02/2022 at 16:05
== END ==
PROVIDERS: PCP Nurse Practitioner; Referring Provider Nurse Practitioner; Visit Provider Nurse Practitioner
DX: R79.89 Other specified abnormal findings of blood chemistry (principal); K76.0 Fatty (change of) liver, not elsewhere classified; Z90.49 Acquired absence of other specified parts of digestive tract
CPT/HCPCS: 76705

== ENCOUNTER → 2023-03-07 08:36 | Outpatient (CLI) | payer MEDICARE, SELFPAY ==
[2023-03-07 09:58] LABS: Alanine Aminotransferase 25 IU/L (<35); Albumin Globulin Ratio 1.4 (1.0-2.8); Alkaline Phosphatase 71 U/L (38-126); Aspartate Aminotransferase 41 IU/L (14-36); BUN Creatinine Ratio 18.2 (6-22); Bilirubin Total 0.2 mg/dL (0.2-1.3); Blood Urea Nitrogen 14 mg/dL (7-17); Carbon Dioxide 25 mmol/L (22-32); Chloride 105 mmol/L (98-107); Cholesterol 146 mg/dL (140-199); Estimated Glomerular Filt Rate > 60 mL/min (>60); Globulin 2.9 g/dL (1.7-4.1); Glucose 101 mg/dL (80-110); HDL Cholesterol 67 mg/dL (40-60); HEMOLYSIS < 15 (0-50); LDL Cholesterol Calculated 56 mg/dL (<100); Potassium 4.4 mmol/L (3.4-5.1); Sodium 138 mmol/L (137-145); Total Protein 6.9 g/dL (6.3-8.2); Triglycerides 115 mg/dL (35-150)
== END ==
PROVIDERS: PCP Nurse Practitioner; Referring Provider Nurse Practitioner; Visit Provider Nurse Practitioner
DX: E78.2 Mixed hyperlipidemia (principal); K76.0 Fatty (change of) liver, not elsewhere classified; Z79.899 Other long term (current) drug therapy
CPT/HCPCS: 36415; 80053; 80061

== ENCOUNTER → 2023-11-06 | Outpatient (CLI) | payer MEDICARE, SELFPAY ==
--- NOTE | 2023-11-06 10:41 | DI.MG.S_ITS ---
BILATERAL DIGITAL SCREENING MAMMOGRAM 3D/2D WITH CAD: 11/06/2023 CLINICAL: Routine screening. Family history of breast cancer. Comparison is made to exams dated: 11/05/2022 mammogram, 09/11/2021 mammogram, and 08/30/2020 mammogram - [facility]. There are scattered areas of fibroglandular density in both breasts (category b / 25%-50% glandular tissue). Current study was also evaluated with a Computer Aided Detection (CAD) system. There is a focal asymmetry in the right breast at 8 o'clock posterior depth. No other significant masses, calcifications, or other findings are seen in either breast. Post surgical reduction changes. IMPRESSION: INCOMPLETE: NEEDS ADDITIONAL IMAGING EVALUATION The focal asymmetry in the right breast is indeterminate. Additional views with possible ultrasound are recommended. Based on the Tyrer Cuzick model (a risk assessment model) the patient's lifetime risk is 5.4% and her 10 year risk is 4.9%. According to the ACR, ACS, and NCCN guidelines, an annual breast MRI exam along with mammogram is recommended if the patient's lifetime risk is 20% or greater. This exam was interpreted at Station ID: [id number]. NOTE: For mammograms, a report in lay terms will be sent to the patient. Approximately 15% of breast malignancies will not be visualized mammographically. In the management of a palpable breast mass, a negative mammogram must not discourage biopsy of a clinically suspicious lesion. Electronically Signed By: Albert Carey M.D. lc/:11/06/2023 16:26:57 letter sent: Additional Imaging Needed ACR BI-RADS Category 0: Incomplete 3340F
--- NOTE | 2023-11-06 10:41 | DI.RAD.S_ITS ---
Bone Density Report Name: IVAN HAYNES Age: 73 Sex: Female Ethnicity: White Date of : 1950 Indication: osteopenia; Referring Provider: BOSTON BORGES Study: Bone densitometry was performed. Exam Date: November 06, 2023 Accession number: [id number] Bone Density: Region BMD T-score Z-score Classification AP Spine(L1, L4) 0.872 -1.5 0.8 Osteopenia Femoral Neck (Left) 0.648 -1.8 0.2 Osteopenia Total Hip (Left) 0.739 -1.7 0.1 Osteopenia Femoral Neck (Right) 0.626 -2.0 0.0 Osteopenia Total Hip (Right) 0.704 -1.9 -0.2 Osteopenia Total Hip Mean 0.722 -1.8 -0.1 Osteopenia Total Forearm (Left) 0.476 -1.9 0.4 Osteopenia 1/3 Forearm (Left) 0.577 -2.0 0.5 Osteopenia UD Forearm (Left) 0.388 -0.9 0.8 Normal World Health Organization criteria for BMD impression classify patients as: Normal (T-score at or above -1.0), Osteopenia (T-score between -1.0 and -2.5), or Osteoporosis (T-score at or below -2.5). 10-year Fracture Risk(1): Major Osteoporotic Fracture 12% Hip Fracture 2.8% Reported Risk Factors: [place] (), Neck BMD=0.626, BMI=29.1 (1) FRAX(R) Version 3.08. Fracture probability calculated for an untreated patient. Fracture probability may be lower if the patient has received treatment. Previous Exams: -- Region Exam Age BMD T-score BMD Change BMD Change Date g/cm2 vs Baseline vs Previous -- AP Spine (L1,L4) 11/06/2023 73 0.872 -1.5 -0.041 (-4.5%)# -0.046 (-5.0%)* 11/05/2022 72 0.918 -1.1 0.005 (0.5%)# -0.040 (-4.2%)# 07/19/2020 69 0.959 -0.7 0.045 (5.0%)* 0.045 (5.0%)* 08/05/2017 66 0.913 -1.1 Total Hip(Left) 11/06/2023 73 0.739 -1.7 -0.029 (-3.8%)# -0.014 (-1.8%) 11/05/2022 72 0.752 -1.6 -0.016 (-2.0%)# 0.031 (4.3%)# 07/19/2020 69 0.721 -1.8 -0.047 (-6.1%)* -0.047 (-6.1%)* 08/05/2017 66 0.768 -1.4 Total Hip(Right) 11/06/2023 73 0.704 -1.9 -0.022 (-3.0%)# -0.015 (-2.0%) 11/05/2022 72 0.719 -1.8 -0.007 (-1.0%)# 0.017 (2.5%)# 07/19/2020 69 0.702 -2.0 -0.025 (-3.4%) -0.025 (-3.4%) 08/05/2017 66 0.726 -1.8 -- *Denotes significance at 95% confidence level, LSC for AP Spine = 0.022 g/cm2, LSC for Total Hip = 0.027 g/cm2 Rate of change results reflect vertebral levels common to all scans # Denotes dissimilar scan types or analysis methods Impression: The patient has low bone mass, based on the Right Femoral Neck T-score. The patient has an estimated ten-year risk of hip fracture of 2.8% and an estimated ten-year risk of major fracture of 12%, based on the WHO FRAX algorithm. The BMD for the AP Spine (L1,L4) decreased, changing by -5.0% since the last DXA exam. Discussion: BONE DENSITY IS LOW AT ONE OR MORE SKELETAL SITES. This patient's lowest T-score is low at one or more skeletal sites. It meets the World Health Organization's (WHO) criteria for low bone mass (T-score between -1.0 and -2.5). The patient's 10-year risk of fracture as calculated by FRAX is less than the threshold where pharmacological therapy is recommended by the National Osteoporosis Foundation (NOF). However, all treatment decisions require clinical judgment and consideration of individual patient factors, including patient preferences, comorbidities, previous drug use, risk factors not captured in the FRAX model (e.g., frailty, falls, vitamin D deficiency, increased bone turnover, interval significant decline in bone density) and possible under or overestimation of fracture risk by FRAX. The patient should follow a healthful lifestyle (good nutrition with adequate calcium and vitamin D, and appropriate weight-bearing exercise). Follow-Up: Consider repeating this study in 2 years to reassess this patient's status, or sooner if there is some new clinical indication. Reported by: YULISA BURT M.D. on 11/06/2023 12:29:00 PM.
[2023-11-06 10:51] LABS: Add Manual Diff / Slide Review NO; Basophils Absolute Auto 0 /uL (0-100); Basophils Percent Auto 0.3 % (0-2); Eosinophils Absolute Auto 200 /uL (0-450); Eosinophils Percent Auto 5.3 % (2-4); Hemoglobin 13.2 g/dL (12.0-16.0); Lymphocytes Absolute Auto 1100 /uL (1100-4500); Lymphocytes Percent Auto 25.2 % (25-40); Mean Corpuscular Hemoglobin 28.9 PG (26-34); Mean Corpuscular Volume 87.6 fL (80-100); Monocytes Absolute Auto 400 /uL (0-900); Monocytes Percent Auto 8.9 % (3-14); Neutrophils Absolute Auto 2800 /uL (1500-7000); Neutrophils Percent Auto 60.3 % (50-75); Platelet Count 274 X10^3/uL (150-400); Red Blood Cell Count 4.56 X10^6/uL (4.0-5.2); Red Cell Distribution Width 14.1 % (11.6-14.8); White Blood Cell Count 4.6 X10^3/uL (4.5-11.0)
[2023-11-06 11:20] LABS: HEMOLYSIS < 15 (0-50)
[2023-11-06 11:28] LABS: HEMOLYSIS < 15 (0-50); Iron 91 ug/dL (37-170)
[2023-11-06 11:29] LABS: Alanine Aminotransferase 26 IU/L (<35); Albumin 3.9 g/dL (3.5-5.0); Albumin Globulin Ratio 1.3 (1.0-2.8); Alkaline Phosphatase 84 U/L (38-126); Aspartate Aminotransferase 59 IU/L (14-36); BUN Creatinine Ratio 22.2 (6-22); Bilirubin Total 0.5 mg/dL (0.2-1.3); Blood Urea Nitrogen 16 mg/dL (7-17); Calcium 9.4 mg/dL (8.4-10.2); Carbon Dioxide 28 mmol/L (22-32); Chloride 102 mmol/L (98-107); Cholesterol 152 mg/dL (140-199); Estimated Glomerular Filt Rate > 60 mL/min (>60); Globulin 2.9 g/dL (1.7-4.1); Glucose 82 mg/dL (80-110); HDL Cholesterol 57 mg/dL (40-60); LDL Cholesterol Calculated 75 mg/dL (<100); Phosphorous 3.6 mg/dL (2.8-4.1); Potassium 4.3 mmol/L (3.4-5.1); Sodium 137 mmol/L (137-145); Total Protein 6.8 g/dL (6.3-8.2); Triglycerides 102 mg/dL (35-150)
[2023-11-06 11:39] LABS: Percent Iron Saturation 27 % (15-50); Total Iron Binding Capacity 335 ug/dL (265-497); Transferrin 281 mg/dL (206-381)
[2023-11-06 11:42] LABS: Vitamin D 25 Hydroxy (D3) 93.4 ng/mL (30.0-100.0)
[2023-11-06 11:45] LABS: Free T3, Triiodothyronine Free 3.15 pg/mL (2.77-5.27); Free T4, Direct Thyroxine 0.78 ng/dL (0.78-2.19)
[2023-11-06 11:58] LABS: Thyroid Stimulating Hormone 2.19 uIU/mL (0.47-4.68)
[2023-11-06 12:01] LABS: Ferritin 39 ng/mL (11-264)
[2023-11-06 12:03] LABS: Hemoglobin A1C% w Est Avg Glu 5.2 % (4.0-6.0)
[2023-11-06 13:15] LABS: Folate 5.4 ng/mL (2.76-20.0); Vitamin B12 > 1000 pg/mL (239-931)
[2023-11-08 11:06] LABS: Calcium 9.4 mg/dL (8.7-10.3); Parathyroid Hormone, Intact 45 pg/mL (15-65)
[2023-11-09 04:20] LABS: Zinc 130 ug/dL (44-115)
[2023-11-11 23:44] LABS: Vitamin A 40.6 ug/dL (22.0-69.5)
== END ==
PROVIDERS: PCP Nurse Practitioner; Referring Provider Nurse Practitioner; Visit Provider Nurse Practitioner
DX: Z80.3 Family history of malignant neoplasm of breast (principal); R92.323 Mammographic fibroglandular density, bilateral breasts; M81.0 Age-related osteoporosis without current pathological fracture; K76.0 Fatty (change of) liver, not elsewhere classified; E78.2 Mixed hyperlipidemia; Z12.31 Encounter for screening mammogram for malignant neoplasm of breast; Z79.899 Other long term (current) drug therapy; Z86.2 Personal history of diseases of the blood and blood-forming organs and certain disorders involving the immune mechanism
CPT/HCPCS: 36415; 77063; 77067; 77080; 77081; 80053; 80061; 82306; 82310; 82525; 82607; 82728; 82746; 83036; 83540; 83550; 83735; 83970; 84100; 84439; 84443; 84481; 84590; 84630; 85025

== ENCOUNTER → 2023-11-19 08:42 | Outpatient (CLI) | payer MEDICARE, SELFPAY ==
--- NOTE | 2023-11-19 | DI.MG.S_ITS ---
UNILATERAL RIGHT DIGITAL DIAGNOSTIC MAMMOGRAM 3D/2D WITH ADDITIONAL VIEWS: 11/19/2023 CLINICAL: Additional evaluation requested from prior study. Family history breast cancer. Comparison is made to exams dated: 11/06/2023 mammogram, 11/05/2022 mammogram, 09/11/2021 mammogram, 08/30/2020 mammogram, and 08/20/2019 mammogram - [facility]. There are scattered areas of fibroglandular density in the right breast (category b / 25%-50% glandular tissue). There is a focal asymmetry in the right breast at 8 o'clock posterior depth. This is not seen in additional views. No other significant masses or calcifications are seen in the breast. IMPRESSION: NEGATIVE There is no mammographic evidence of malignancy. Right breast focal asymmetry is not confirmed. This is most consistent with fibroglandular tissue. Prior breast reduction. A 1 year screening mammogram is recommended. Based on the Tyrer Cuzick model (a risk assessment model) the patient's lifetime risk is 5.4% and her 10 year risk is 4.9%. According to the ACR, ACS, and NCCN guidelines, an annual breast MRI exam along with mammogram is recommended if the patient's lifetime risk is 20% or greater. This exam was interpreted at Station ID: [id number]. NOTE: For mammograms, a report in lay terms will be sent to the patient. Approximately 15% of breast malignancies will not be visualized mammographically. In the management of a palpable breast mass, a negative mammogram must not discourage biopsy of a clinically suspicious lesion. Electronically Signed By: Geraldo Obrien M.D. [facility] [place]/:11/19/2023 09:46:49 letter sent: Normal Exam ACR BI-RADS Category 1: Negative 3341F
== END ==
LOC: MAMMO 08:44
PROVIDERS: PCP Nurse Practitioner; Referring Provider Nurse Practitioner; Visit Provider Nurse Practitioner
DX: R92.8 Other abnormal and inconclusive findings on diagnostic imaging of breast (principal); R92.321 Mammographic fibroglandular density, right breast
CPT/HCPCS: 77065; G0279

== ENCOUNTER → 2023-12-10 14:27 | Outpatient (CLI) | payer MEDICARE, SELFPAY ==
[2023-12-10 15:15] LABS: Add Manual Diff / Slide Review NO; Basophils Absolute Auto 0 /uL (0-100); Basophils Percent Auto 0.3 % (0-2); Eosinophils Absolute Auto 100 /uL (0-450); Eosinophils Percent Auto 2.2 % (2-4); Hematocrit 41.7 % (36-46); Hemoglobin 13.7 g/dL (12.0-16.0); Lymphocytes Absolute Auto 1100 /uL (1100-4500); Lymphocytes Percent Auto 17.7 % (25-40); Mean Corpuscular HGB Conc 32.8 % (30-36); Mean Corpuscular Hemoglobin 28.8 PG (26-34); Mean Corpuscular Volume 87.6 fL (80-100); Monocytes Absolute Auto 600 /uL (0-900); Monocytes Percent Auto 10.4 % (3-14); Neutrophils Absolute Auto 4200 /uL (1500-7000); Neutrophils Percent Auto 69.4 % (50-75); Platelet Count 139 X10^3/uL (150-400); Red Blood Cell Count 4.76 X10^6/uL (4.0-5.2); Red Cell Distribution Width 14.2 % (11.6-14.8)
[2023-12-10 15:18] LABS: Appearance Urine UA CLEAR; Bilirubin Urine UA NEGATIVE (NEGATIVE); Color Urine UA YELLOW; Glucose Urine UA NEGATIVE (Negative); Ketones Urine UA TRACE (NEGATIVE); Leukocyte Esterase Urine UA NEGATIVE (NEGATIVE); Nitrite Urine UA NEGATIVE (Negative); Occult Blood Urine UA NEGATIVE (Negative); Protein Urine UA NEGATIVE (Negative); Specific Gravity Urine UA >=1.030 (1.000-1.035)
[2023-12-10 15:23] LABS: Alanine Aminotransferase 75 IU/L (<35); Albumin 3.8 g/dL (3.5-5.0); Albumin Globulin Ratio 1.2 (1.0-2.8); Alkaline Phosphatase 274 U/L (38-126); Aspartate Aminotransferase 258 IU/L (14-36); Bilirubin Total 0.8 mg/dL (0.2-1.3); Blood Urea Nitrogen 19 mg/dL (7-17); C-Reactive Protein Quant 4.4 mg/dL (<1.0); Calcium 9.9 mg/dL (8.4-10.2); Carbon Dioxide 30 mmol/L (22-32); Chloride 105 mmol/L (98-107); Estimated Glomerular Filt Rate > 60 mL/min (>60); Globulin 3.1 g/dL (1.7-4.1); Glucose 93 mg/dL (80-110); HEMOLYSIS < 15 (0-50); Lipase 132 U/L (23-300); Potassium 4.8 mmol/L (3.4-5.1); Sodium 140 mmol/L (137-145); Total Protein 6.9 g/dL (6.3-8.2)
[2023-12-10 15:26] LABS: Bacteria Urine None Seen; Culture Indicated Urine Cult Not Indicated; RBC Urine None Seen (0-5/HPF); Squamous Epithelial Cell Urine None Seen (0-5/HPF); Urine Volume 10mL (spun); WBC Urine None Seen (0-5/HPF)
[2023-12-10 15:36] LABS: Erythrocyte Sedimentation Rate 6 MM/HR (0-20)
== END ==
PROVIDERS: PCP Nurse Practitioner; Referring Provider Registered Nurse Diabetes Educator; Visit Provider Registered Nurse Diabetes Educator
DX: R10.12 Left upper quadrant pain (principal); R10.9 Unspecified abdominal pain; R19.5 Other fecal abnormalities
CPT/HCPCS: 36415; 80053; 81001; 83690; 85025; 85651; 86140

== ENCOUNTER → 2023-12-11 14:00 | Outpatient (CLI) | payer MEDICARE, SELFPAY ==
--- NOTE | 2023-12-11 14:01 | DI.CT.S_ITS ---
PROCEDURE: CT ABDOMEN PELVIS W CON INDICATIONS: LUQ pain, elevated LFTs, pale stools TECHNIQUE: After the administration of intravenous contrast, axial sections acquired from the lung bases to the pubic symphysis. Coronal and sagittal reformats were performed. For radiation dose reduction, the following was used: automated exposure control, adjustment of mA and/or kV according to patient size. COMPARISON: [facility], CT, CT ABDOMEN PELVIS W CON, 05/22/2021, 0:15. FINDINGS: Image quality: Diagnostic. Lower Chest: Hamartoma in the left lower lobe. ABDOMEN: Liver: Heterogeneous appearance of the liver, with suspected diffuse liver lesions. Largest lesion measures 6.5 x 8.2 centimeters in the liver dome (series 2, image 22). The right intrahepatic portal vein is displaced by this lesion. Additional smaller lesions are present. Gallbladder: Absent. Biliary ducts: No biliary dilation. Pancreas: No ductal dilation. Pancreatic lipoma measuring 2.2 centimeters in the pancreatic head (series 2, image 35). Spleen: Size is within normal limits. Adrenal Glands: No adrenal nodules. Kidneys and Ureters: No hydronephrosis. No solid mass. No complex renal cystic lesion which requires follow up. Stomach and Bowel: Normal colonic caliber, without significant wall thickening. Peritoneum: Small volume ascites. Ventral Wall: No significant ventral hernia. Abdominal Nodes: Periportal lymphadenopathy, including the 2 centimeter short axis periportal node (series 2, image 34). Retroperitoneal adenopathy also present, including the 1.2 centimeter short axis upper periaortic node (series 2, image 38). Vessels: Aorta and inferior vena cava are normal in size. PELVIS: Pelvic Organs: Unremarkable. Bladder: No bladder wall thickening, accounting for underdistention. Pelvic Nodes: No enlarged lymph nodes. Miscellaneous: No inguinal hernias are seen. Bones: No aggressive osseous abnormality. IMPRESSION: Heterogeneous appearance of the liver, with suspected diffuse metastatic disease versus primary HCC with satellite metastases. Largest lesion measures 6.5 x 8.2 centimeters. These lesions would be amenable to CT-guided biopsy, following complete characterization with liver MRI with contrast (liver mass protocol; EOVIST). Dictated by: Tyler Dotson M.D. on 12/11/2023 at 16:22 Approved by: Tyler Dotson M.D. on 12/11/2023 at 16:28
== END ==
PROVIDERS: PCP Nurse Practitioner; Referring Provider Registered Nurse Diabetes Educator; Visit Provider Registered Nurse Diabetes Educator
DX: K76.9 Liver disease, unspecified (principal); D17.5 Benign lipomatous neoplasm of intra-abdominal organs; R59.0 Localized enlarged lymph nodes; R10.12 Left upper quadrant pain; R19.5 Other fecal abnormalities; R74.8 Abnormal levels of other serum enzymes; Z90.49 Acquired absence of other specified parts of digestive tract
CPT/HCPCS: 74177; Q9967

== ENCOUNTER 2023-12-16 22:52 | Emergency (ER) | payer MEDICARE, SELFPAY ==
[2023-12-16 22:56] VITALS: BP 105/70; PULSE 100; RESP 17; TEMP 36.1; O2SAT 97; BMI 28.3
[2023-12-16] MEDS: ONDANSETRON 4 MG/2 ML INJ IV (23:12)
[2023-12-16 23:14] VITALS: BP 108/70; PULSE 85; RESP 24; O2SAT 97
[2023-12-16 23:31] LABS: Add Manual Diff / Slide Review NO; Basophils Absolute Auto 0 /uL (0-100); Basophils Percent Auto 0.3 % (0-2); Eosinophils Absolute Auto 0 /uL (0-450); Hematocrit 37.1 % (36-46); Hemoglobin 12.1 g/dL (12.0-16.0); Lymphocytes Absolute Auto 700 /uL (1100-4500); Lymphocytes Percent Auto 7.2 % (25-40); Mean Corpuscular HGB Conc 32.6 % (30-36); Mean Corpuscular Hemoglobin 28.4 PG (26-34); Mean Corpuscular Volume 87.2 fL (80-100); Monocytes Absolute Auto 600 /uL (0-900); Monocytes Percent Auto 6.3 % (3-14); Neutrophils Absolute Auto 8800 /uL (1500-7000); Neutrophils Percent Auto 86.2 % (50-75); Platelet Count 148 X10^3/uL (150-400); Red Blood Cell Count 4.26 X10^6/uL (4.0-5.2); Red Cell Distribution Width 15.4 % (11.6-14.8); White Blood Cell Count 10.3 X10^3/uL (4.5-11.0)
[2023-12-16 23:35] LABS: Albumin 3.5 g/dL (3.5-5.0); Albumin Globulin Ratio 1.2 (1.0-2.8); Alkaline Phosphatase 445 U/L (38-126); Aspartate Aminotransferase 432 IU/L (14-36); BUN Creatinine Ratio 23.5 (6-22); Bilirubin Total 1.7 mg/dL (0.2-1.3); Blood Urea Nitrogen 24 mg/dL (7-17); Calcium 8.7 mg/dL (8.4-10.2); Carbon Dioxide 12 mmol/L (22-32); Chloride 107 mmol/L (98-107); Estimated Glomerular Filt Rate 58 mL/min (>60); Glucose 157 mg/dL (80-110); HEMOLYSIS < 15 (0-50); Potassium 4.8 mmol/L (3.4-5.1); Sodium 137 mmol/L (137-145); Total Protein 6.5 g/dL (6.3-8.2)
[2023-12-16 23:42] LABS: Alanine Aminotransferase 107 IU/L (<35)
[2023-12-16] MEDS: SODIUM CHLORIDE 0.9% 1,000 ML 1000 ML IV (23:53)
[2023-12-16 23:56] LABS: Lipase 79 U/L (23-300)
[2023-12-17] VITALS (12 sets, daily range): BP systolic 105–128; BP diastolic 57–72; PULSE 79–93; RESP 16–24; TEMP 37.1–37.2; O2SAT 91–99
[2023-12-17] MEDS: KETOROLAC 30 MG/ML VIAL 15 MG IV (00:05)
--- NOTE | 2023-12-17 00:23 | DI.US.S_ITS ---
PROCEDURE: US ABDOMEN LIMITED INDICATIONS: ruq TECHNIQUE: Real-time scanning was performed of the abdominal and retroperitoneal organs, with image documentation. COMPARISON: [facility], US, US ABDOMEN LIMITED, 12/02/2022, 14:47. [facility], CT, CT ABDOMEN PELVIS W CON, 12/17/2023, 0:59. FINDINGS: Liver: Liver is enlarged measuring 18.6 cm maximum diameter with heterogeneous echotexture related to known hepatic masses. Hepatopetal flow seen in the main portal vein. Gallbladder: Status post cholecystectomy. Biliary ducts: Intrahepatic bile ducts are non-dilated. Extrahepatic bile duct caliber measures 7.5 mm. Normal is 6-7 mm or less in diameter, or 10 mm or less post-cholecystectomy. Pancreas: Not well visualized due to overlying bowel gas. Miscellaneous: Small amount of ascites is seen in the right lower quadrant and perihepatic region. IMPRESSION: 1. Enlarged heterogeneous liver related to suspected masses as seen on CT. Portal vein is patent. 2. Status post cholecystectomy. 3. Small volume of ascites. Approved by: Jesu Brooke M.D. on 12/17/2023 at 2:03
--- NOTE | 2023-12-17 00:44 | ED_ITS ---
HPI - Nausea/Vomiting/Diarrhea General Chief complaint: Nausea/Vomiting/Diarrhea Stated complaint: vomiting nothing recent liver ca dx Time Seen by Provider: 12/16/23 23:38 Source: patient and family Mode of arrival: Ambulatory History of Present Illness HPI Narrative: Patient 73-year-old female history of hyperlipidemia, newly diagnosed presumed hepatocellular carcinoma awaiting on biopsy presents today with nausea vomiting and increasing abdominal pain. In November she was noted to have elevated liver enzymes thought to be hepatic steatosis by December 09 she started having some abdominal pain. At that time a CT was done on December 10 showing numerous liver masses. She has an MRI and a biopsy scheduled here for tomorrow but having increasing pain. She is afebrile denies any fever. No chest pain or shortness of breath. She overall appears very uncomfortable and to not feel well. Related Data Home Medications Medication Instructions Recorded Confirmed diphenhydramine 25 2 tab PO BEDTIME PRN Sleep 03/17/19 12/12/23 mg-acetaminophen 500 mg tablet (Acetaminophen PM) RESP[employer] DreamStation CPAP #1 ea 11/30/20 12/12/23 Device vit C 250 mg-vit E 90 mg-zinc 40 1 tab PO BID 05/23/21 12/12/23 mg-copper 1 [id number] capsule (PreserVision AREDS-2) cholecalciferol (vitamin D3) 125 125 mcg PO DAILY 08/09/22 12/12/23 mcg (5,000 unit) tablet (Vitamin D3) ferrous sulfate 325 mg (65 mg 325 mg PO DAILY 08/09/22 12/12/23 iron) tablet (Iron (ferrous sulfate)) vitamin B12 2,500 mcg-folic acid 1 tab PO DAILY 08/09/22 12/12/23 400 mcg disintegrating tablet Previous Rx's Medication Instructions Recorded pantoprazole 20 mg tablet,delayed See Rx Instructions .Route 10/28/23 release .COMPLEX #180 tabs rosuvastatin 5 mg tablet 5 mg PO DAILY #90 tabs 10/28/23 semaglutide 1 mg/dose (4 mg/3 mL) 1 mg (0.75 mL) SUBCUT QWEEK #12 mL 10/28/23 subcutaneous pen injector Semaglutide 1mg/ml See Rx Instructions SUBCUT 11/04/23 .COMPLEX #6 mL escitalopram oxalate 20 mg tablet 40 mg (2 x 20 mg) PO DAILY #180 03/08/24 tabs Allergies Allergy/AdvReac Type Severity Reaction Status Date / Time adhesive tape [ADHESIVE TAPE] AdvReac Intermediate BLISTER Verified 12/16/23 22:55 FROM SURGICAL TAPE Patient History Medical History Hepatic steatosis Mixed hyperlipidemia Hematuria Diarrhea Fibula fracture 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 Abnormal EKG Obstructive sleep apnea, adult (~07/03/15) Osteopenia after menopause Obesity (BMI 30-39.9) Lipoma of arm Incontinence History of iron deficiency anemia Pain in both hands GERD (gastroesophageal reflux disease) (Unknown) History of gambling (1999) Hearing loss (1989) Cataracts, bilateral (2013) Osteoarthritis (1999) Fractures (1959) Skin cancer (1994) Actinic keratosis (1989) Anxiety (1999) Tubular adenoma of colon (09/10/17) Osteoporosis (08/21/17) History of melanoma excision (08/2014) Depression (1989) Status post gastric bypass for obesity Hyperlipidemia Surgical History History of bilateral breast reduction surgery History of Johanna-en-Y gastric bypass Hx of cataract surgery (Unknown) Hx of blepharoplasty (~1989) History of skin surgery (2009) Hx of basal cell carcinoma excision (2010) History of carpal tunnel repair (1994) History of knee replacement Status post cholecystectomy History of gastric bypass Status post hysterectomy Family History Family/Other Adopted Social History household members: spouse Smoking Status: Former smoker Tobacco: How many years used: 20 second hand exposure: No alcohol intake: current substance use type: does not use Smoking Status: Former smoker alcohol intake frequency: 0-2 drinks per day Substance Use Type: does not use Exam Initial Vital Signs Initial Vital Signs: Vital Signs Temperature 97.0 F L 12/16/23 22:56 Pulse Rate 100 H 12/16/23 22:56 Respiratory Rate 17 12/16/23 22:56 Blood Pressure 105/70 12/16/23 22:56 Pulse Oximetry 97 12/16/23 22:56 Oxygen Delivery Method Room Air 12/16/23 22:56 GENERAL: Alert 73-year-old female appears uncomfortable and in no acute distress. HEENT: Head atraumatic,EOMI, pupils reactive, face symmetric, moist mucous membranes CARDIOVASCULAR: Regular rate and rhythm without murmurs, rubs or gallops. RESPIRATORY: Breath sounds equal bilaterally, no wheezes rales or rhonchi. ABDOMEN: Soft tender right upper quadrant mild epigastric pain mild distention no guarding no rebound EXTREMITIES: Normal range of motion, no clubbing or edema. Neurovascularly intact NEUROLOGICAL: Alert and oriented x4.Normal gait and speech. SKIN: Warm, dry, no laceration, no petechiae, no rashes or lesions. Course Orders Ordered: ED Orders 12/16/23 23:10 Complete Blood Count AUTO DIFF Stat Comprehensive Metabolic Panel Stat Lipase Stat 12/17/23 00:23 US abdomen limited Stat Lactate (Lactic Acid) Stat 12/17/23 00:53 CT abdomen pelvis w con Stat 12/17/23 01:02 EKG-12 Lead Stat 12/17/23 01:30 Blood Culture Stat CMP [Comprehensive Metabolic Panel] Stat PTT Partial Thromboplastin Tom Stat Prothrombin Time INR Stat Troponin & CK Cardiac Panel Stat 12/17/23 02:48 MR Abdomen Liver Protocol Stat Discontinued Medications Hydromorphone HCl (Hydromorphone 0.5 Mg Inj) 0.5 mg IV NOW ONE Stop: 12/17/23 03:00 Last Admin: 12/17/23 03:05 Dose: 0.5 mg Documented By: IRMA Sodium Chloride (Normal Saline 0.9%) 1,000 mls @ 1,000 mls/hr IV BOLUS ONE Stop: 12/17/23 00:37 Last Infusion: 12/17/23 00:57 Dose: Infused Documented By: Admin: 12/16/23 23:53 Dose: 1,000 mls/hr Documented By: IRMA Lactated Ringer's (Lactated Ringers) 2,177.25 mls @ 725.75 mls/hr 30 ml/kg infuse over 3 hr (2177.25 ml) IV NOW ONE Stop: 12/17/23 04:01 Last Infusion: 12/17/23 03:36 Dose: Infused Documented By: Admin: 12/17/23 01:14 Dose: 725.75 mls/hr Documented By: OW Piperacillin Sod/Tazobactam (Sod 4.5 gm/ Sodium Chloride) 100 mls @ 200 mls/hr IV NOW ONE Stop: 12/17/23 01:03 Last Infusion: 12/17/23 02:24 Dose: Infused Documented By: Admin: 12/17/23 01:38 Dose: 200 mls/hr Documented By: OW Ceftriaxone Sodium 2,000 mg/ (Sodium Chloride) 100 mls @ 200 mls/hr IV NOW ONE Stop: 12/17/23 02:16 Last Infusion: 12/17/23 03:33 Dose: Infused Documented By: Admin: 12/17/23 02:27 Dose: 200 mls/hr Documented By: OW Ketorolac Tromethamine (Ketorolac 30 Mg/Ml Vial) 15 mg IV NOW ONE Stop: 12/17/23 00:01 Last Admin: 12/17/23 00:05 Dose: 15 mg Documented By: OW Morphine Sulfate (Morphine 2 Mg/Ml Inj) 2 mg IV NOW ONE Stop: 12/17/23 01:03 Last Admin: 12/17/23 01:10 Dose: 2 mg Documented By: OW Ondansetron HCl (Ondansetron 4 Mg/2 Ml Inj) 4 mg IV NOW ONE Stop: 12/16/23 23:05 Last Admin: 12/16/23 23:12 Dose: 4 mg Documented By: IRMA Vital Signs Vital signs: Vital Signs - 8 hr 12/16/23 23:14 12/17/23 00:00 12/17/23 00:30 Temperature Pulse Rate 85 93 H 84 Respiratory Rate 24 24 24 Blood Pressure 108/70 113/70 113/68 Pulse Oximetry 97 96 95 Oxygen Delivery Method Room Air Room Air Room Air 12/17/23 01:00 12/17/23 01:30 12/17/23 02:07 Temperature 98.9 F Pulse Rate 79 82 83 Respiratory Rate 20 19 24 Blood Pressure 116/72 Pulse Oximetry 96 99 95 Oxygen Delivery Method Room Air Room Air Room Air 12/17/23 02:30 12/17/23 03:00 12/17/23 03:30 Temperature 98.7 F Pulse Rate 82 81 84 Respiratory Rate 22 19 22 Blood Pressure 128/69 109/64 112/66 Pulse Oximetry 94 94 92 Oxygen Delivery Method Room Air 12/17/23 04:01 12/17/23 05:00 12/17/23 06:14 Temperature Pulse Rate 88 80 80 Respiratory Rate 17 17 18 Blood Pressure 113/57 L 105/59 L 105/59 L Pulse Oximetry 93 91 95 Oxygen Delivery Method Room Air Room Air Room Air 12/17/23 06:30 Temperature Pulse Rate 79 Respiratory Rate 16 Blood Pressure Pulse Oximetry 93 Oxygen Delivery Method Room Air MDM - Nausea/Vomiting/Diarrhea Lab Data 12/16/23 23:10 12/17/23 01:30 Labs: Lab Results 12/16/23 12/17/23 Range/Units 23:10 01:30 WBC 10.3 (4.5-11.0) X10^3/uL RBC 4.26 (4.0-5.2) X10^6/uL Hgb 12.1 (12.0-16.0) g/dL Hct 37.1 (36-46) % MCV 87.2 (80-100) fL MCH 28.4 (26-34) PG MCHC 32.6 (30-36) % RDW 15.4 H (11.6-14.8) % Plt Count 148 L (150-400) X10^3/uL Neut % (Auto) 86.2 H (50-75) % Lymph % (Auto) 7.2 L (25-40) % [place] % (Auto) 6.3 (3-14) % Eos % (Auto) 0.0 L (2-4) % Baso % (Auto) 0.3 (0-2) % Neut # (Auto) 8800 H (3218-0346) /uL Lymph # (Auto) 700 L (0392-5141) /uL [place] # (Auto) 600 (0-900) /uL Eos # (Auto) 0 (0-450) /uL Baso # (Auto) 0 (0-100) /uL PT 18.2 H (9.4-12.5) SECONDS INR 1.6 H (0.9-1.3) APTT 54 H (25.1-36.5) SECONDS Sodium 137 135 L (137-145) mmol/L Potassium 4.8 5.0 (3.4-5.1) mmol/L Chloride 107 106 (98-107) mmol/L Carbon Dioxide 12 L 19 L (22-32) mmol/L BUN 24 H 26 H (7-17) mg/dL Creatinine 1.02 0.84 (0.52-1.04) mg/dL Estimated GFR 58 L > 60 (>60) mL/min BUN/Creatinine Ratio 23.5 H 31.0 H (6-22) Glucose 157 H 119 H (80-110) mg/dL Lactate 8.8 H* 6.4 H* (0.7-2.1) mmol/L Calcium 8.7 7.9 L (8.4-10.2) mg/dL Total Bilirubin 1.7 H 1.6 H (0.2-1.3) mg/dL AST 432 H 402 H (14-36) IU/L ALT 107 H 99 H (<35) IU/L Alkaline Phosphatase 445 H D 365 H (38-126) U/L Total Creatine Kinase 138 H (30-135) U/L Troponin I < 0.012 (0.01-0.034) ng/mL Total Protein 6.5 5.7 L (6.3-8.2) g/dL Albumin 3.5 2.8 L (3.5-5.0) g/dL Globulin 3.0 2.9 (1.7-4.1) g/dL Albumin/Globulin Ratio 1.2 1.0 (1.0-2.8) Lipase 79 (23-300) U/L Imaging Data CT scan - abdomen/pelvis: Radiologist's Impression: INDICATIONS: vomiting hx of gastric bypass, elevated liver enzymes TECHNIQUE: After the administration of intravenous contrast, axial sections acquired from the lung bases to the pubic symphysis. Coronal and sagittal reformats were performed. For radiation dose reduction, the following was used: automated exposure control, adjustment of mA and/or kV according to patient size. COMPARISON: [facility], CT, CT ABDOMEN PELVIS W CON, 12/11/2023, 15:16. [facility], CT, CT ABDOMEN PELVIS W CON, 05/22/2021, 0:15. FINDINGS: Image quality: Diagnostic. Lower Chest: Stable left lower lobe benign hamartoma. ABDOMEN: Liver: Heterogeneous appearance of the liver again seen with large hypoattenuating areas that again suspicious for intrahepatic masses. The appearance is not appear significantly changed when compared to the CT from 12/11/2023. Gallbladder: Status post cholecystectomy. Biliary ducts: No biliary dilation. Pancreas: Fat containing lesion again seen in the region of the pancreatic head, unchanged. No pancreatic duct dilatation. Spleen: Size is within normal limits. Adrenal Glands: No adrenal nodules. Kidneys and Ureters: No hydronephrosis. No solid mass. No complex renal cystic lesion which requires follow up. Stomach and Bowel: Postsurgical changes from prior gastric bypass. Multiple diverticular seen in the colon without signs of acute diverticulitis. Small bowel loops and stomach are otherwise unremarkable. Peritoneum: Small volume of ascites has increased when compared to the prior CT. Fluid measures greater than simple fluid density. No layering hematocrit layer is seen. No pneumoperitoneum. Ventral Wall: Small fat containing periumbilical hernia. Abdominal Nodes: Periportal and retroperitoneal lymphadenopathy does not appear significantly changed. Vessels: Aorta and inferior vena cava are normal in size. PELVIS: Pelvic Organs: Status post hysterectomy. Bladder: No bladder wall thickening, accounting for underdistention. Pelvic Nodes: No enlarged lymph nodes. Miscellaneous: No inguinal hernias are seen. Bones: No aggressive osseous abnormality. Dextroconvex curvature of the lumbar spine with multilevel degenerative changes. IMPRESSION: 1. Small to moderate volume of ascites in the abdomen and pelvis as significantly increased when compared to the CT from 12/11/2023. Fluid measures greater than simple fluid density, which may indicate exudative/proteinaceous or blood-tinged fluid. No layering hematocrit layer is seen. Recommend correlation with hemoglobin levels to exclude significant hemorrhage. 2. Heterogeneous appearance of the liver with suspected diffuse hepatic masses, not significantly changed when compared to the CT from 12/11/2023. 3. Stable periportal and retroperitoneal lymphadenopathy. Approved by: Jesu Brooke M.D. on 12/17/2023 at 1:31 US - abdomen: Radiologist's Impression: PROCEDURE: US ABDOMEN LIMITED INDICATIONS: ruq TECHNIQUE: Real-time scanning was performed of the abdominal and retroperitoneal organs, with image documentation. COMPARISON: [facility], US, US ABDOMEN LIMITED, 12/02/2022, 14:47. [facility], CT, CT ABDOMEN PELVIS W CON, 12/17/2023, 0:59. FINDINGS: Liver: Liver is enlarged measuring 18.6 cm maximum diameter with heterogeneous echotexture related to known hepatic masses. Hepatopetal flow seen in the main portal vein. Gallbladder: Status post cholecystectomy. Biliary ducts: Intrahepatic bile ducts are non-dilated. Extrahepatic bile duct caliber measures 7.5 mm. Normal is 6-7 mm or less in diameter, or 10 mm or less post-cholecystectomy. Pancreas: Not well visualized due to overlying bowel gas. Miscellaneous: Small amount of ascites is seen in the right lower quadrant and perihepatic region. IMPRESSION: 1. Enlarged heterogeneous liver related to suspected masses as seen on CT. Portal vein is patent. 2. Status post cholecystectomy. 3. Small volume of ascites. Approved by: Jesu Brooke M.D. on 12/17/2023 at 2:03 ECG Data Attestation: I personally reviewed and interpreted this ECG as follows: Interpretation: QRS 80 OK interval 140 QRS 80 QTC 463 is Q-wave noted in lead 3 and AVF similar to previous EKGs [place] [address] elevations or depressions MDM Narrative Medical decision making narrative: Patient 73-year-old female with presumed hepatocellular carcinoma currently being worked up waiting for biopsy presenting today with increasing abdominal pain nausea vomiting. She overall is feeling better after pain medication. She is afebrile. Blood work reviewed does show bicarb of 12 at that point blood cultures lactate and other labs were added on. Lactate is found to be critically high at 8.8-->6.4, liver enzymes also continue to rise. Today bilirubin is 1.7 previously 0.8, AST 432, ALT 107, alk-phos 445 lipase 79 Imaging has been reviewed CT does show new abdominal ascites [id number] mount which is significantly increased from 1 week prior. She continues to have multiple diffuse hepatic masses which remained relatively unchanged and she is retroperitoneal lymphadenopathy Ultrasound does not show any site for paracentesis no significant amount of fluid drainable, small volume ascites Certainly with the patient's increasing abdominal pain elevated lactate of 8.8 concern for SBP despite being afebrile. Unfortunately not enough ascites to do a paracentesis. She is given Zosyn and Rocephin to cover for SBP. Patient's vitals are stable not hypotensive tachycardic or febrile she does have significantly elevated lactic acid which has improved some with septic fluids. She is having pain does not seem to be out of proportion possible mesenteric ischemia although I think were related to cancer. At this time with patient's persistently elevated lactate worsening liver function and new presumed hepatocellular cancer need higher level of care. She has also had a gastric bypass if she needs an ERCP is can not be done here at this facility. 03:30 Dr. Noyola accepts patient at [facility]. Due to patient's persistently elevated lactic acid will likely need a progressive bed. Critical Care Time Critical Care Time Critical Care Time: Yes Total Critical Care Time: 39 Attestation: The high probability of a clinically significant, sudden or life threatening deterioration of the [cardiovascular] system(s) required my full and direct attention, intervention and personal management. The aggregate critical care time was 39 minutes. This time is in addition to time spent performing reported procedures but includes the following: [x] Data Review and interpretation [x] Patient assessment and monitoring of vital signs [x] Documentation [x] Medication orders and management Discharge Plan Departure Patient Disposition: [facility] Clinical Impression: Hepatocellular carcinoma, Acute lactic acidosis Prescriptions: No Action Semaglutide 1mg/ml See Rx Instructions SUBCUT .COMPLEX Qty: 6 0RF Rx Instructions: Inject 0.25mg SQ weekly x 4 weeks, then increase to 0.5mg weekly x 4 weeks, then 1mg SQ weekly thereafter as tolerated. escitalopram oxalate 20 mg tablet 40 mg PO DAILY Qty: 180 3RF semaglutide 1 mg/dose (4 mg/3 mL) pen injector 1 mg SUBCUT QWEEK Qty: 12 3RF Rx Instructions: Inject 1mg (0.75mL) weekly. rosuvastatin 5 mg tablet 5 mg PO DAILY Qty: 90 3RF pantoprazole 20 mg tablet,delayed release (DR/EC) See Rx Instructions .ROUTE .COMPLEX Qty: 180 3RF Dose Instruction: TAKE ONE TABLET BY MOUTH TWICE DAILY Rx Instructions: TAKE ONE TABLET BY MOUTH TWICE DAILY diphenhydramine-acetaminophen [Acetaminophen PM] 25-500 mg tablet 2 tab PO BEDTIME PRN (Reason: Sleep) Patient Comments: 07/12 patient states taking just acetaminophen ferrous sulfate [Iron (ferrous sulfate)] 325 mg (65 mg iron) Tablet 325 mg PO DAILY cholecalciferol (vitamin D3) [Vitamin D3] 125 mcg (5,000 unit) Tablet 125 mcg PO DAILY vitamin [id number]-nqken acid 2,500-400 mcg Tablet,Disintegrating 1 tab PO DAILY (DME) [employer] DreamStation CPAP Device 0 .Route .MEDSUPPLY Qty: 1 PreserVision AREDS-2 250-90-40-1 mg capsule 1 tab PO BID Referrals: Christine Hill ARNP [Primary Care Provider] -
--- NOTE | 2023-12-17 00:53 | DI.CT.S_ITS ---
PROCEDURE: CT ABDOMEN PELVIS W CON INDICATIONS: vomiting hx of gastric bypass, elevated liver enzymes TECHNIQUE: After the administration of intravenous contrast, axial sections acquired from the lung bases to the pubic symphysis. Coronal and sagittal reformats were performed. For radiation dose reduction, the following was used: automated exposure control, adjustment of mA and/or kV according to patient size. COMPARISON: [facility], CT, CT ABDOMEN PELVIS W CON, 12/11/2023, 15:16. [facility], CT, CT ABDOMEN PELVIS W CON, 05/22/2021, 0:15. FINDINGS: Image quality: Diagnostic. Lower Chest: Stable left lower lobe benign hamartoma. ABDOMEN: Liver: Heterogeneous appearance of the liver again seen with large hypoattenuating areas that again suspicious for intrahepatic masses. The appearance is not appear significantly changed when compared to the CT from 12/11/2023. Gallbladder: Status post cholecystectomy. Biliary ducts: No biliary dilation. Pancreas: Fat containing lesion again seen in the region of the pancreatic head, unchanged. No pancreatic duct dilatation. Spleen: Size is within normal limits. Adrenal Glands: No adrenal nodules. Kidneys and Ureters: No hydronephrosis. No solid mass. No complex renal cystic lesion which requires follow up. Stomach and Bowel: Postsurgical changes from prior gastric bypass. Multiple diverticular seen in the colon without signs of acute diverticulitis. Small bowel loops and stomach are otherwise unremarkable. Peritoneum: Small volume of ascites has increased when compared to the prior CT. Fluid measures greater than simple fluid density. No layering hematocrit layer is seen. No pneumoperitoneum. Ventral Wall: Small fat containing periumbilical hernia. Abdominal Nodes: Periportal and retroperitoneal lymphadenopathy does not appear significantly changed. Vessels: Aorta and inferior vena cava are normal in size. PELVIS: Pelvic Organs: Status post hysterectomy. Bladder: No bladder wall thickening, accounting for underdistention. Pelvic Nodes: No enlarged lymph nodes. Miscellaneous: No inguinal hernias are seen. Bones: No aggressive osseous abnormality. Dextroconvex curvature of the lumbar spine with multilevel degenerative changes. IMPRESSION: 1. Small to moderate volume of ascites in the abdomen and pelvis as significantly increased when compared to the CT from 12/11/2023. Fluid measures greater than simple fluid density, which may indicate exudative/proteinaceous or blood-tinged fluid. No layering hematocrit layer is seen. Recommend correlation with hemoglobin levels to exclude significant hemorrhage. 2. Heterogeneous appearance of the liver with suspected diffuse hepatic masses, not significantly changed when compared to the CT from 12/11/2023. 3. Stable periportal and retroperitoneal lymphadenopathy. Approved by: Jesu Brooke M.D. on 12/17/2023 at 1:31
[2023-12-17 00:55] LABS: Lactate (Lactic Acid) 8.8 mmol/L (0.7-2.1)
[2023-12-17] MEDS: MORPHINE 2 MG/ML INJ IV (01:10)
[2023-12-17] MEDS: LACTATED RINGERS 2,177.25 ML 725.75 ML IV (01:14)
[2023-12-17] MEDS: PIPERACILLIN/TAZO 4.5 GM in SODIUM CHLORIDE 0.9% 100 ML IV (01:38)
[2023-12-17 01:55] LABS: INR 1.6 (0.9-1.3); Prothrombin Time 18.2 SECONDS (9.4-12.5)
[2023-12-17 01:58] LABS: Creatine Kinase 138 U/L (30-135); PTT Partial Thromboplastin Tim 54 SECONDS (25.1-36.5)
[2023-12-17 02:10] LABS: Reflexed Lactate in 2 Hours Y
[2023-12-17 02:13] LABS: Troponin I < 0.012 ng/mL (0.01-0.034)
[2023-12-17 02:26] LABS: Albumin 2.8 g/dL (3.5-5.0); Alkaline Phosphatase 365 U/L (38-126); Aspartate Aminotransferase 402 IU/L (14-36); Bilirubin Total 1.6 mg/dL (0.2-1.3); Blood Urea Nitrogen 26 mg/dL (7-17); Calcium 7.9 mg/dL (8.4-10.2); Carbon Dioxide 19 mmol/L (22-32); Chloride 106 mmol/L (98-107); Estimated Glomerular Filt Rate > 60 mL/min (>60); Globulin 2.9 g/dL (1.7-4.1); Glucose 119 mg/dL (80-110); Sodium 135 mmol/L (137-145); Total Protein 5.7 g/dL (6.3-8.2)
[2023-12-17] MEDS: cefTRIAXone 2,000 MG in SODIUM CHLORIDE 0.9% 100 ML 200 MG IV (02:27)
[2023-12-17 02:32] LABS: Alanine Aminotransferase 99 IU/L (<35)
[2023-12-17 02:45] LABS: HEMOLYSIS 70 (0-50)
[2023-12-17] MEDS: HYDROMORPHONE 0.5 MG INJ IV (03:05)
[2023-12-17 04:07] LABS: Lactate 2HR (Lactic Acid Rflx) 6.4 mmol/L (0.7-2.1)
--- NOTE | 2023-12-17 06:15 | PC.NURSE ---
VM accepted,by Dr. Vu... Report [id number] option1 [facility] ETA [id number]
== END 2023-12-17 07:01 | disposition short-term general hospital (02) ==
PROVIDERS: Emergency Provider Emergency Medicine; PCP Nurse Practitioner
DX: E87.21 Acute metabolic acidosis (principal); C22.0 Liver cell carcinoma; R18.8 Other ascites; Z98.84 Bariatric surgery status
CPT/HCPCS: 36415; 74177; 76705; 80053; 82550; 83605; 83690; 84484; 85025; 85610; 85730; 87040; 93005; 93010; 96361; 96365; 96367; 96375; 99284; 99291; J0696; J1170; J1885; J2270; J2405; J2543; Q9967